=== PATIENT | female | born 1955 | race Caucasian/White ===

== ENCOUNTER 2016-02-22 01:57 | Emergency (ER) | payer MEDICAID ==
[2016-02-22] MEDS ORDERED: ONDANSETRON HCL/PF 2 MG/ML VIAL IV ONE (02:47)
[2016-02-22] MEDS ORDERED: NORMAL SALINE 1,000 ML IV ONE (02:47)
[2016-02-22] MEDS ORDERED: ONDANSETRON HCL/PF 2 MG/ML VIAL ONE (02:48)
--- NOTE | 2016-02-22 02:54 | ERNOTE ---
Medical Problem HPI - Narrative Date of Service: 02/22/16 - General Chief Complaint: Nausea/Vomiting Time Seen by Provider: 02/22/16 02:41 Source: patient Exam Limitations: no limitations - Immun/Allergies/Home Medications Immunizations: IMMUNIZATION HX Immunizations Up to Date Yes History of Influenza Vaccine Yes Hx Pneumococcal Vaccination Yes Allergies/Adverse Reactions: Allergies losartan [Losartan] Allergy (Severe, Verified 02/01/16 18:45) SEVERE EDEMA celecoxib [From Celebrex] Adverse Reaction (Intermediate, Verified 02/01/16 18: 45) "VIOLENT" GI DISTRESS NSAIDS (Non-Steroidal Anti-Inflamma Adverse Reaction (Intermediate, Verified 01/06 18:45) "violent" gi distress aspirin Adverse Reaction (Mild, Verified 02/01/16 18:45) Vomiting ibuprofen Adverse Reaction (Mild, Verified 02/01/16 18:45) Vomiting nabumetone [From Relafen] Adverse Reaction (Mild, Verified 02/01/16 18:45) diarrhea/vomiting citalopram hydrobromide [From Celexa] Adverse Reaction (Verified 02/01/16 18:45) "HISTORY OF FAMILY HEART PROBLEMS" Home Medications: HOME MEDICATIONS Albuterol Sulfate [Albuterol Sulfate 2.5 MG/0.5ML] 1 inh NEB Q4H PRN 11/06/15 [ Last Taken Unknown] Alendronate Sodium [Fosamax] 70 mg PO Q7D 11/06/15 [Last Taken 01/28/16] Benzonatate [Tessalon] 100 mg PO BID PRN 11/06/15 [Last Taken Unknown] DULoxetine HCL [Cymbalta] 90 mg PO DAILY 11/06/15 [Last Taken Unknown] Fluticasone/Salmeterol [Advair 500-50 Diskus] 1 puff INH Q12H 11/06/15 [Last Taken Unknown] Ibuprofen [Motrin] 600 mg PO BID PRN 11/06/15 [Last Taken Unknown] LORazepam [Ativan] 0.5 mg PO DAILY PRN 11/06/15 [Last Taken Unknown] Lisinopril [Zestril] 10 mg PO QPM 11/06/15 [Last Taken Unknown] Montelukast Sodium [Singulair] 10 mg PO DAILY 11/06/15 [Last Taken Unknown] Omeprazole [Prilosec] 40 mg PO DAILY 11/06/15 [Last Taken Unknown] Oxycodone HCl/Acetaminophen [Percocet 5-325 mg Tablet] 1 each PO Q4H PRN [Last Taken Unknown] Polyethylene Glycol 3350 [Miralax] 1 cap PO DAILY 11/06/15 [Last Taken Unknown] Pregabalin [Lyrica] 300 mg PO BID 11/06/15 [Last Taken Unknown] Tiotropium [place] [Spiriva] 1 inh PO DAILY 11/06/15 [Last Taken Unknown] Tizanidine HCl [Zanaflex] 4 mg PO QPM PRN 11/06/15 [Last Taken Unknown] Triamterene/Hydrochlorothiazid [Dyazide 37.5/25] 1 cap PO DAILY 11/06/15 [Last Taken Unknown] traMADol HCL [Ultram] 100 mg PO QID PRN 11/06/15 [Last Taken Unknown] traZODone HCL [Desyrel] 150 mg PO HS 11/06/15 [Last Taken Unknown] Albuterol Sulfate [Proair Respiclick] 90 mcg IH Q4H PRN 02/02/16 [Last Taken Unknown] Fluticasone Propionate [Flonase] 1 spray NS DAILY PRN 02/02/16 [Last Taken Unknown] Morphine Sulfate [Morphine Sulfate ER] 30 mg PO Q12H 02/02/16 [Last Taken Unknown] Morphine Sulfate [Ms Contin] 15 mg PO Q6H PRN 02/02/16 [Last Taken Unknown] Potassium Chloride [K-Dur] 40 meq PO QPM 02/02/16 [Last Taken Unknown] - History of Present History Narrative: 60-year-old female states she started having diarrhea Tuesday evening followed by nausea and vomiting which has been persistent since that time. She has mild epigastric pain from throwing up but denies other abdominal pain or distention. States she has cough but this is chronic and denies other constitutional signs or symptoms other than weakness from the dehydration Timing: constant Severity: moderate Modifying Factors - (Improves): Present: other - nothing Modifying Factors - (Worsens): Present: other - nothing Review of Systems - Review of Systems Constitutional: Present: See HPI EYE: Present: no symptoms reported ENT: Present: no symptoms reported Respiratory: Present: See HPI Cardiology: Present: no symptoms reported Gastrointestinal/Abdominal: Present: See HPI Genitourinary: Present: no symptoms reported Musculoskeletal: Present: no symptoms reported Skin: Present: no symptoms reported Neurological: Present: no symptoms reported Endocrine: Present: no symptoms reported Hematologic/Lymphatic: Present: no symptoms reported Psych: Present: no symptoms reported - Patient's Past Medical History Patient History - Medical: Anxiety, Arthritis, Chronic Pain, Depression, Fibromyalgia, GERD, Kidney stone, Migraines Patient History - Cardiac/Respiratory: COPD - no home O2, Hypertension Patient History - Cancer: No Hx of Cancer Patient History - Surgical Procedures: Back Surgery, Colonoscopy, D & C, Total Knee Replacement, Tubal Ligation, T & A, Other - Social History Living Situations: home Smoking Status: Never smoker Have you smoked in the past 12 months: No Do you dip or chew tobacco: No Patient requests Smoking Cessation Consult: No Initiate information on Smoking Cessation: No Alcohol Use: occasionally Drug Use: marijuana Physical Exam - Physical Exam General Appearance: Present: moderate distress - appears weak and pale and dry Eye Exam: Normal inspection: bilateral, PERRL: bilateral Ears, Nose, Throat: Present: normal ENT inspection, hearing grossly normal, normal pharynx Neck: Present: normal inspection, nontender Respiratory: Present: no respiratory distress, no accessory muscle use, chest nontender, lungs clear, decreased breath sounds Cardiovascular/Chest: Present: regular rate, rhythm, no murmur, normal peripheral pulses Gastrointestinal/Abdominal: Present: nondistended, soft, tenderness - mild epigastric Rectal Exam: Present: deferred Back Exam: Present: normal inspection Extremity Exam: Present: normal inspection, non-tender, no edema Neurological Exam: Present: alert, oriented, no motor/sensory deficits Skin Exam: Present: warm/dry, pallor Lymphatic Exam: Present: no adenopathy ED Progress - Results and Orders Patient's Lab Results:: I have reviewed the patient's lab results. Results and Orders: Also, slow with a right shift indicative of viral illness. Chemistries essentially within normal limits except for the decreased sodium 132 - Vital Signs Vital Signs: Vital Signs 02/22/16 02:02 Temperature 35.7 C L Pulse Rate 105 H Respiratory 16 Rate Blood Pressure 169/107 O2 Sat by Pulse 99 Oximetry - X-Ray X-Ray #1 X-Ray: abdomen - this distention of bowel but no evidence of air-fluid levels or obstruction - Progress/Reassessment Chief Complaint: Nausea/Vomiting Departure - Departure Clinical Impression: Viral gastroenteritis, Dehydration Disposition: Home self-care Condition: Fair Instructions: Rehydration, Adult, Viral Gastroenteritis, Adult, [id number] Additional Instructions: continue fluid replacement with clear liquids and gatorade. Follow up with Dr. Flores if not better by Tuesday Referrals: Iban Peres MD [Primary Care Provider] -
[2016-02-22 03:05] LABS: Hematocrit 39.9 % (37.0-47.0); Mean Cell Volume 85.1 fl (78-100); Mean Corpuscular Hemoglobin 27.7 pg (27-31); Mean Corpuscular Hgb Conc 32.6 g/dl (32-36); Mean Platelet Volume 9.1 fl (6.0-9.5); Neutrophil # 4.3 K/mm3 (1.3-6.0); Neutrophil % 67.8 % (42-75.0); Red Blood Count 4.69 M/mm3 (4.2-5.4); Red Cell Distribution Width 16.4 % (11.5-14.0); White Blood Count 6.4 K/mm3 (4.0-10.5)
[2016-02-22 03:18] LABS: Albumin * 4.2 gm/dl (3.4-5.0); Anion Gap 16.2 mmol/L (6.8-13.8); BUN/Creatinine Ratio 9.5 (9.0-21.6); Bilirubin, Total 0.6 mg/dL (0.0-1.1); Ca. Corrected For Albumin 8.6 mg/dL (8.4-10.2); Calcium * 9.1 mg/dL (7.9-10.9); Carbon Dioxide 25.5 mmol/L (24-32.6); Potassium 3.7 mmol/L (3.4-4.6); Total Protein 7.7 gm/dL (6.2-8.2)
[2016-02-22 03:19] LABS: Platelet Count 343 K/mm3 (150-450)
[2016-02-22] MEDS ORDERED: ONDANSETRON 4 MG TAB.RAPDIS PO ONE (04:02)
[2016-02-22] MEDS ORDERED: ONDANSETRON 4 MG TAB.RAPDIS ONE (04:05)
[2016-02-22 04:31] VITALS: BP 159/98
== END 2016-02-22 04:15 | disposition home or self-care (01) ==
LOC: ER 01:57
DX: E86.0 Dehydration (principal); A08.4 Viral intestinal infection, unspecified; Z96.659 Presence of unspecified artificial knee joint

== ENCOUNTER 2016-03-17 10:16 | Inpatient (IN) | payer MEDICAID ==
[2016-03-17] MEDS ORDERED: MORPHINE SULFATE 4 MG/ML SYRG IV ONE (10:28)
[2016-03-17] MEDS ORDERED: MORPHINE SULFATE 4 MG/ML SYRG ONE (10:39)
[2016-03-17 11:35] LABS: Hematocrit 32.9 % (37.0-47.0); Hemoglobin 10.8 gm/dL (12.5-16.0); Mean Cell Volume 86.6 fl (78-100); Mean Corpuscular Hemoglobin 28.4 pg (27-31); Mean Corpuscular Hgb Conc 32.8 g/dl (32-36); Neutrophil # 5.2 K/mm3 (1.3-6.0); Neutrophil % 75.8 % (42-75.0); Platelet Count 424 K/mm3 (150-450); Red Cell Distribution Width 15.4 % (11.5-14.0); White Blood Count 6.8 K/mm3 (4.0-10.5)
[2016-03-17 11:41] LABS: Prothrombin Time (Patient) 10.5 Seconds (9.4-11.4)
[2016-03-17 11:50] LABS: Albumin * 3.4 gm/dl (3.4-5.0); Anion Gap 12.2 mmol/L (6.8-13.8); BUN/Creatinine Ratio 9.9 (9.0-21.6); Bilirubin, Total 0.3 mg/dL (0.0-1.1); Ca. Corrected For Albumin 9.6 mg/dL (8.4-10.2); Calcium * 9.4 mg/dL (7.9-10.9); Carbon Dioxide 25.8 mmol/L (24-32.6); Total Protein 7.3 gm/dL (6.2-8.2)
[2016-03-17 11:51] LABS: INR 1.01 INR (0.90-1.10)
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
[2016-03-17 12:04] LABS: Urine Bilirubin Negative (NEGATIVE); Urine Ketone Negative (NEGATIVE); Urine Nitrite Negative (NEGATIVE); Urine Protein Negative (NEGATIVE); Urine Specific Gravity <=1.005 SP.GR. (1.005-1.010); Urine Urobilinogen Normal (NORMAL)
[2016-03-17 12:10] LABS: Urine Appearance Clear; Urine Bacteria None Seen; Urine Blood 10 /ul (NEGATIVE); Urine Color Yellow; Urine RBC 0-5 /hpf (0-5); Urine WBC None Seen /hpf (0-5)
--- NOTE | 2016-03-17 12:47 | CONS ---
- Reason for consultation (1) Hip fracture, right Date of Service: 03/17/16 HPI - General Date of Service: 03/17/16 Narrative: ^1 y/o female with hx of falling in bathroom at home and noted onset of pain to Rt hip and inability to weight bear on the Rt LE. Transported to [facility] via [facility]. Evaluation in the ED with noted femoral neck fracture Rt. Source: patient Exam Limitations: no limitations - History of Present Illness Initial Comments: As above. No new complaints. Denies preceeding dizzines or syncope prior to the fall. Timing/Duration: 1-3 hours Severity: moderate Modifying Factors - (Worsens): Reports: movement Modifying Factors - (Improves): Reports: immobilization, rest Associated Symptoms: denies symptoms Allergies/Adverse Reactions: Allergies losartan [Losartan] Allergy (Severe, Verified 03/17/16 10:30) SEVERE EDEMA celecoxib [From Celebrex] Adverse Reaction (Intermediate, Verified 03/17/16 10: 30) "VIOLENT" GI DISTRESS NSAIDS (Non-Steroidal Anti-Inflamma Adverse Reaction (Intermediate, Verified 10:30) "violent" gi distress aspirin Adverse Reaction (Mild, Verified 03/17/16 10:30) Vomiting ibuprofen Adverse Reaction (Mild, Verified 03/17/16 10:30) Vomiting nabumetone [From Relafen] Adverse Reaction (Mild, Verified 03/17/16 10:30) diarrhea/vomiting citalopram hydrobromide [From Celexa] Adverse Reaction (Verified 03/17/16 10:30) "HISTORY OF FAMILY HEART PROBLEMS" Home Medications: Home Medications Medication Instructions Recorded Last Taken Albuterol Sulfate [Albuterol 1 inh NEB Q4H PRN 11/06/15 Unknown Sulfate 2.5 MG/0.5ML] Alendronate Sodium [Fosamax] 70 mg PO Q7D 11/06/15 01/28/16 Benzonatate [Tessalon] 100 mg PO BID PRN 11/06/15 Unknown DULoxetine HCL [Cymbalta] 90 mg PO DAILY 11/06/15 Unknown Fluticasone/Salmeterol [Advair 1 puff INH Q12H 11/06/15 Unknown 500-50 Diskus] Ibuprofen [Motrin] 600 mg PO BID PRN 11/06/15 Unknown LORazepam [Ativan] 0.5 mg PO DAILY PRN 11/06/15 Unknown Lisinopril [Zestril] 10 mg PO QPM 11/06/15 Unknown Montelukast Sodium [Singulair] 10 mg PO DAILY 11/06/15 Unknown Omeprazole [Prilosec] 40 mg PO DAILY 11/06/15 Unknown Oxycodone HCl/Acetaminophen 1 each PO Q4H PRN 11/06/15 Unknown [Percocet 5-325 mg Tablet] Polyethylene Glycol 3350 [Miralax] 1 cap PO DAILY 11/06/15 Unknown Pregabalin [Lyrica] 300 mg PO BID 11/06/15 Unknown Tiotropium [place] [Spiriva] 1 inh PO DAILY 11/06/15 Unknown Tizanidine HCl [Zanaflex] 4 mg PO QPM PRN 11/06/15 Unknown Triamterene/Hydrochlorothiazid 1 cap PO DAILY 11/06/15 Unknown [Dyazide 37.5/25] traMADol HCL [Ultram] 100 mg PO QID PRN 11/06/15 Unknown traZODone HCL [Desyrel] 150 mg PO HS 11/06/15 Unknown Albuterol Sulfate [Proair 90 mcg IH Q4H PRN 02/02/16 Unknown Respiclick] Fluticasone Propionate [Flonase] 1 spray NS DAILY PRN 02/02/16 Unknown Morphine Sulfate [Morphine Sulfate 30 mg PO Q12H 02/02/16 Unknown ER] Morphine Sulfate [Ms Contin] 15 mg PO Q6H PRN 02/02/16 Unknown Potassium Chloride [K-Dur] 40 meq PO QPM 02/02/16 Unknown - Narrative Narrative: remote hx of tobacco use, otherwise negative. - Patient's Past Medical History Patient History - Medical: Anxiety, Arthritis, Chronic Pain, Depression, Fibromyalgia, GERD, Kidney stone, Migraines Patient History - Cardiac/Respiratory: COPD - no home O2, Hypertension Patient History - Cancer: No Hx of Cancer Patient History - Surgical Procedures: Back Surgery, Cholecystectomy, Total Knee Replacement, Other - Family History Family History:: no untoward family reactions to anesthesia - Social History Living Situations: home Smoking Status: Former smoker Have you smoked in the past 12 months: No Alcohol Use: occasionally Drug Use: marijuana Procedures BUNIONECT/SFT/OSTEOTOMY (09/12/13) BUNIONECTOMY NEC (09/12/13) CLOSURE SKIN & SUBCUTANEOUS NEC (02/17/14) DIPHTHERIA TOXOID ADMIN (05/31/09) DRESSING OF WOUND NEC (08/01/09) OTHER SKIN & SUBQ I D (04/27/10) REMOV INT FIX-METAT/TAR (05/23/14) TETANUS TOXOID ADMINIST (05/31/09) Physical Examination - Exam Narrative: Awake and alert. No bruisng to the Rt hip region. Pain to palpation over the Rt hip. Noted Rt TKA scar. Good distal pulses and sensation to the Rt LE. No other orthopedic findings. Additional exam per medicine. Vital Signs: Vital Signs - Last Taken Temp 36.7 C 03/17/16 10:21 Pulse 101 H 03/17/16 12:00 Resp 15 03/17/16 12:00 BP 154/83 03/17/16 12:00 Pulse Ox 96 03/17/16 12:00 - Results and Findings: Narrative: Noted Rt femoral neck fracture. Plan: Reviewed the films with Dr. Thomas. Plan for Rt Total Hip Arthroplasty for 03/18/2016. Have discussed this with the pt. Reviewed the risks and benefits. Pt agrees to proceed. - Assessments/Findings (1) Hip fracture, right Problem: Acute Qualifiers: Encounter type: initial encounter Fracture type: closed Qualified Code(s) : S72.001A - Fracture of unspecified part of neck of right femur, initial encounter for closed fracture
[2016-03-17] MEDS ORDERED: ceFAZolin SODIUM 1 GM VIAL IV PRN (12:49)
[2016-03-17] MEDS: MORPHINE SULFATE 2 MG/ML DISP.SYRIN IV PRN ×5 (14:04→23:18)
--- NOTE | 2016-03-17 16:05 | HP ---
Chief Complaint - Chief Complaint Date of Service: 03/17/16 Time of Service: 16:05 Chief Complaint: right hip pain History of Present Illness: Pita Charles, is a 60-year-old white female, with previous medical history of COPD, hypertension, anxiety and depression, fibromyalgia, who earlier this morning (03/17/2016) slipped in her bathroom and fell down. She immediately experienced severe right hip pain and could not stand up and bear weight. She was brought to the emergency room where she was found to have a right femoral neck fracture. She was then admitted for further orthopedic intervention. She denied any chest pain, shortness of breath, palpitations, blanketing of vision, soiling of undergarments before she fell down. Her most recent surgery was in September 2015 where she had left total knee arthroplasty in [facility] . She did not have any cardiac/pulmonary or anesthesia complications. She denies any fever or chills, denies any coughing, she denies any dysuria, frequency, chest pain, shortness of breath or palpitations.. - Patient's Past Medical History Patient History - Medical: Anemia, Anxiety, Arthritis, Chronic Pain, Depression , Fibromyalgia, GERD, Kidney stone, Migraines, Osteoarthritis, UTI'S Patient History - Cardiac/Respiratory: COPD - no home O2, Hypertension Patient History - Cancer: No Hx of Cancer Patient History - Surgical Procedures: Back Surgery, Cholecystectomy, Colonoscopy, D & C, Total Knee Replacement, Other - Family History Brother Family History - Medical: Family History - Cardiac/Respiratory: Coronary Heart Disease, CVA/Stroke Father Family History - Cardiac/Respiratory: Coronary Heart Disease, Hypertension Mother Family History - Medical: Arthritis Family History - Cardiac/Respiratory: Coronary Heart Disease, COPD, TIA Sister Family History - Medical: Arthritis Family History - Cardiac/Respiratory: Hypertension - Social History Living Situations: home Smoking Status: Former smoker Have you smoked in the past 12 months: No Do you dip or chew tobacco: No Patient requests Smoking Cessation Consult: No Initiate information on Smoking Cessation: No Alcohol Use: occasionally Drug Use: marijuana Review Of Systems (GEN) - Review of Systems Generalized/Overall Review: Absent: Chills, Fever EENTM: Present: No Symptoms Reported Respiratory: Absent: Cough, Shortness of Breath Cardiac: Absent: Chest Pain, Edema, Palpitations Abdominal: Absent: Nausea, Vomiting Genitourinary: Absent: Urgency, Frequency Musculoskeletal: Present: Joint Pain Allergies/Adverse Reactions: Allergies Allergy/AdvReac Type Severity Reaction Status Date / Time losartan [Losartan] Allergy Severe SEVERE Verified 03/17/16 12:42 EDEMA celecoxib [From Celebrex] AdvReac Intermediate "VIOLENT" Verified 03/17/16 12:42 GI DISTRESS NSAIDS (Non-Steroidal AdvReac Intermediate "violent" Verified 03/17/16 12:42 Anti-Inflamma gi distress aspirin AdvReac Mild Vomiting Verified 03/17/16 12:42 ibuprofen AdvReac Mild Vomiting Verified 03/17/16 12:42 nabumetone [From Relafen] AdvReac Mild diarrhea/vo Verified 03/17/16 12:42 miting citalopram hydrobromide AdvReac "HISTORY Verified 03/17/16 12:42 [From Celexa] OF FAMILY HEART PROBLEMS" Home Medications: HOME MEDICATIONS Albuterol Sulfate [Albuterol Sulfate 2.5 MG/0.5ML] 1 inh NEB Q4H PRN 11/06/15 [ Last Taken Unknown] Alendronate Sodium [Fosamax] 70 mg PO Q7D 11/06/15 [Last Taken 01/28/16] DULoxetine HCL [Cymbalta] 90 mg PO DAILY 11/06/15 [Last Taken Unknown] Fluticasone/Salmeterol [Advair 500-50 Diskus] 1 puff INH Q12H 11/06/15 [Last Taken Unknown] Ibuprofen [Motrin] 600 mg PO BID PRN 11/06/15 [Last Taken Unknown] Lisinopril [Zestril] 10 mg PO QPM 11/06/15 [Last Taken Unknown] Montelukast Sodium [Singulair] 10 mg PO DAILY 11/06/15 [Last Taken Unknown] Omeprazole [Prilosec] 40 mg PO DAILY 11/06/15 [Last Taken Unknown] Polyethylene Glycol 3350 [Miralax] 1 cap PO DAILY 11/06/15 [Last Taken Unknown] Pregabalin [Lyrica] 150 mg PO TID 11/06/15 [Last Taken Unknown] Tiotropium Ehrenberg [Spiriva] 1 inh PO DAILY 11/06/15 [Last Taken Unknown] Tizanidine HCl [Zanaflex] 4 mg PO QPM PRN 11/06/15 [Last Taken Unknown] Triamterene/Hydrochlorothiazid [Dyazide 37.5/25] 1 cap PO DAILY 11/06/15 [Last Taken Unknown] traMADol HCL [Ultram] 100 mg PO QID PRN 11/06/15 [Last Taken Unknown] traZODone HCL [Desyrel] 150 mg PO HS 11/06/15 [Last Taken Unknown] Albuterol Sulfate [Proair Respiclick] 90 mcg IH Q4H PRN 02/02/16 [Last Taken Unknown] Fluticasone Propionate [Flonase] 1 spray NS DAILY PRN 02/02/16 [Last Taken Unknown] Morphine Sulfate [Ms Contin] 15 mg PO Q6H PRN 02/02/16 [Last Taken Unknown] Potassium Chloride [K-Dur] 40 meq PO DAILY 02/02/16 [Last Taken Unknown] Ranitidine HCl [Zantac] 300 mg PO HS 03/17/16 [Last Taken Unknown] Exam - Exam Vital Signs: Vital Signs - Last Taken Temp 37.1 C 03/17/16 13:40 Pulse 102 H 03/17/16 13:40 Resp 20 03/17/16 13:40 BP 149/84 03/17/16 13:40 Pulse Ox 95 03/17/16 13:40 Constitutional: Present: Alert, Oriented x3, Cooperative ENT Exam: Present: hearing grossly normal Eye Exam: bilateral eye: normal inspection, PERRL, EOMI Neck: Present: supple Back Exam: Present: no CVA tenderness Breasts: Present: Exam deferred Respiratory: Present: decreased breath sounds, No wheezing Cardiovascular/Chest: Present: regular rate, rhythm, no JVD, no murmur Abdomen: Present: Normal bowel sounds, soft, nontender, nondistended /Rectal: Present: Other - RLE- externally rotated, shorter than LLE Diagnostic Studies: Laboratory Results WBC 6.8 K/mm3 (4.0-10.5) 03/17/16 11:30 RBC 3.80 M/mm3 (4.2-5.4) L 03/17/16 11:30 Hgb 10.8 gm/dL (12.5-16.0) L 03/17/16 11:30 Hct 32.9 % (37.0-47.0) L 03/17/16 11:30 MCV 86.6 fl (78-100) 03/17/16 11:30 MCH 28.4 pg (27-31) 03/17/16 11:30 MCHC 32.8 g/dl (32-36) 03/17/16 11:30 RDW 15.4 % (11.5-14.0) H 03/17/16 11:30 Plt Count 424 K/mm3 (150-450) 03/17/16 11:30 MPV 8.0 fl (6.0-9.5) 03/17/16 11:30 Immature Gran % (Auto) 0.70 % (0.001-0.429) H 03/17/16 11:30 Immature Gran # (Auto) 0.05 K/mm3 (0.000-0.0310) H 03/17/16 11:30 Neutrophils % 75.8 % (42-75.0) H 03/17/16 11:30 Lymphocytes % 11.1 % (20-51) L 03/17/16 11:30 Monocytes % 12.0 % (0.0-9) H 03/17/16 11:30 Eosinophils % 0.1 % (0.0-3.0) 03/17/16 11:30 Basophils % 0.3 % (0.0-1.0) 03/17/16 11: Nucleated RBC % 0.0 k/mm3 (0-1) 03/17/16 11:30 Neutrophils # 5.2 K/mm3 (1.3-6.0) 03/17/16 11:30 Lymphocytes # 0.8 k/mm3 (1.5-3.5) L 03/17/16 11:30 Monocytes # 0.8 k/mm3 (0.0-1.0) 03/17/16 11:30 Eosinophils # 0.0 k/mm3 (0.0-0.7) 03/17/16 11: Absolute Basophils 0.0 k/mm3 (0.0-0.1) 03/17/16 11:30 PT 10.5 Seconds (9.4-11.4) 03/17/16 11:30 INR (Anticoag Therapy) 1.01 INR (0.90-1.10) 03/17/16 11:30 Sodium 135 mmol/L (132-142) 03/17/16 11:30 Plasma Sodium 135 mmol/L (130-142) 03/17/16 11:30 Potassium 4.0 mmol/L (3.4-4.6) 03/17/16 11:30 Chloride 101 mmol/L (97-106) 03/17/16 11:30 Carbon Dioxide 25.8 mmol/L (24-32.6) 03/17/16 11:30 Anion Gap 12.2 mmol/L (6.8-13.8) 03/17/16 11:30 BUN 8 mg/dL (3-23) 03/17/16 11:30 Creatinine 0.81 mg/dL (0.4-1.4) 03/17/16 11:30 Est GFR (Non-Af Amer) 77 mL/min (60-130) D 03/17/16 11:30 BUN/Creatinine Ratio 9.9 (9.0-21.6) 03/17/16 11:30 Random Glucose 124 mg/dL (70-110) H 03/17/16 11:30 Calcium 9.4 mg/dL (7.9-10.9) 03/17/16 11:30 Calcium Adj for Albumin 9.6 mg/dL (8.4-10.2) 03/17/16 11:30 Total Bilirubin 0.3 mg/dL (0.0-1.1) 03/17/16 11:30 AST 16 U/L (0-48) 03/17/16 11:30 ALT 29 U/L (19-67) 03/17/16 11:30 Alkaline Phosphatase 90 U/L (50-170) 03/17/16 11:30 Total Protein 7.3 gm/dL (6.2-8.2) 03/17/16 11:30 Albumin 3.4 gm/dl (3.4-5.0) 03/17/16 11:30 Urine Color Yellow 03/17/16 11:55 Urine Appearance Clear 03/17/16 11:55 Urine pH 7.0 pH (5.0-7.0) 03/17/16 11:55 Ur Specific [place] <=1.005 SP.GR. (1.005-1.010) 03/17/16 11:55 Urine Protein Negative mg/dL (NEGATIVE) 03/17/16 11:55 Urine Glucose (UA) Negative mg/dL (NEGATIVE) 03/17/16 11:55 Urine Ketones Negative mg/dL (NEGATIVE) 03/17/16 11:55 Urine Blood 10 /ul (NEGATIVE) H 03/17/16 11:55 Urine Nitrate Negative (NEGATIVE) 03/17/16 11:55 Urine Bilirubin Negative mg/dl (NEGATIVE) 03/17/16 11:55 Urine Urobilinogen Normal EU/dl (NORMAL) 03/17/16 11:55 Ur Leukocyte Esterase Negative /ul (NEGATIVE) 03/17/16 11:55 Urine RBC 0-5 /hpf (0-5) 03/17/16 11:55 Urine WBC None seen /hpf (0-5) 03/17/16 11:55 Ur Epithelial Cells None seen /hpf (0-5) 03/17/16 11:55 Urine Bacteria None seen (NONE) 03/17/16 11:55 Urine Culture Comments Culture to follow 03/17/16 11:55 Assessment/Plan - Assessment/Plan (1) Hip fracture, right Assessment: transcervical right femoralneck fracture for LUCY tomorrow. Her CXR showed no acute cardiopulmonary findings. EKG showed Sinus tachycardia, possible LAE, possible RV conduction delay. CBC, BMP were essentially WNL except for Hb of 10.8. She may proceed with her anticipated surgery. Problem: Acute Qualifiers: Encounter type: initial encounter Fracture type: closed Qualified Code(s) : S72.001A - Fracture of unspecified part of neck of right femur, initial encounter for closed fracture (2) COPD (chronic obstructive pulmonary disease) Problem: Acute (3) Anemia Assessment: likely due to acute blood loss from neck fracture. . Last Hb was 13. will monitor . Problem: Acute Qualifiers: Anemia type: other cause Other causes of anemia: other cause, not classified Qualified Code(s): D64.89 - Other specified anemias (4) Hypertension Problem: Chronic Qualifiers: Hypertension type: essential hypertension Qualified Code(s): I10 - Essential (primary) hypertension (5) Fibromyalgia Assessment: with chronic pain syndrome being followed up by [facility] pain clinic. Problem: Chronic
[2016-03-17] MEDS ORDERED: ALBUTEROL SULFATE 2.5 MG/0.5 ML VIAL.NEB IH PRN (16:22)
[2016-03-17] MEDS ORDERED: FLUTICASONE PROPIONATE 120 SPRAY INHALER NS PRN (16:22)
[2016-03-17] MEDS: LISINOPRIL 10 MG TABLET PO SCH (17:39)
[2016-03-17] MEDS: FLUTICASONE/SALMETEROL 14 PUFF DISK.W.DEV IH SCH (20:15)
[2016-03-17] MEDS: traZODone HCL 150 MG TABLET PO SCH (20:16)
[2016-03-17] MEDS: MONTELUKAST SODIUM 10 MG TABLET PO SCH (20:17)
[2016-03-17] MEDS: FAMOTIDINE 20 MG TABLET PO SCH (20:17)
[2016-03-17] MEDS: PREGABALIN 75 MG CAPSULE PO SCH (20:19)
[2016-03-18] MEDS: MORPHINE SULFATE 2 MG/ML DISP.SYRIN IV PRN ×9 (02:01→18:20)
[2016-03-18] MEDS ORDERED: RINGERS SOLUTION,LACTATED 1,000 ML IV ONE ×4 (06:19→10:05)
[2016-03-18] MEDS ORDERED: ceFAZolin SODIUM 1 GM VIAL IV ONE (08:20)
[2016-03-18] MEDS ORDERED: ROPIVACAINE HCL/PF 100 MG, EPINEPHrine 0.2 MG in NORMAL SALINE 100 ML IJ PRN (09:15)
[2016-03-18] MEDS ORDERED: PROMETHAZINE HCL 5 MG in DEXTROSE 5 % IN WATER 50 ML IV PRN ×2 (10:03)
[2016-03-18] MEDS ORDERED: ONDANSETRON HCL/PF 2 MG/ML VIAL IV PRN (10:03)
[2016-03-18] MEDS ORDERED: oxyCODONE HCL/ACETAMINOPHEN 1 TAB TABLET PO PRN ×2 (10:03)
[2016-03-18] MEDS ORDERED: MAGNESIUM HYDROXIDE 30 ML UDC PO PRN (10:03)
[2016-03-18] MEDS ORDERED: MAG HYDROX/ALUMINUM HYD/SIMETH 30 ML UDC PO PRN (10:03)
--- NOTE | 2016-03-18 10:03 | OR ---
Operative Report - Dictated Report Narrative: Date: 03/18/2016 Preoperative diagnosis: Right displaced subcapital femoral neck fracture Postoperative diagnosis: Right displaced subcapital femoral neck fracture Procedure: Right uncemented total hip arthroplasty Surgeon: Roe Thomas M.D. Flat Bed Knitter: Deb Israel PA-C Anesthesia: Spinal and local periarticular joint injection. Complications: None Specimens: Bone for disposal. Estimated blood loss: 200 milliliters. Retained implants: Depuy Waldo size 6 femoral stem standard offset. Size 46 millimeter ouside diameter 3-hole [place] Gription acetabular cup. 46 millimeter outside by 28 millimeter inside diameter highly cross-linked acetabular liner. 28 millimeter diameter + 8 millimeter cobalt chromium femoral head. Cancellous 6.5mm screw 30 millimeter length Indications: Pita Is a 60-year-old female community ambulator. She sustained a right femoral neck fracture after a ground-level fall. She was initially seen in the [facility] emergency department where plain films revealed a right displaced subcapital femoral neck fracture. She was admitted to the internal medicine service and orthopedics was consultative. I counseled her that this type of fracture often goes on to avascular necrosis if we attempted to fix it and therefore the recommendation would be for a total hip arthroplasty. Patient wished to proceed with surgical treatment. The risks , benefits, and alternatives were discussed in clinic. The risks of , blood clots, bleeding, infection, nerve/tendon blood vessel/ injury, malposition of components, dislocation and/or instability of joint, intraoperative fracture, postoperative limited range of motion, persistent pain , failure of components, leg length discrepancy, and need for additional procedures. Patient wished to proceed. Consent was obtained after answering all questions. Procedure: After marking the correct extremity on the floor, the patient was taken to the operating room. A timeout was performed. IV antibiotics consisting of 1 g of Ancef were administered prior to the procedure. A spinal anesthetic was induced by anesthesia. A Mcconnell catheter was inserted. The patient was then transitioned to a lateral position on a well-padded pegboard. And an axillary roll was placed. The head was in neutral position. The non- operative down leg was well-padded with SCD and DEB hose in place. The arms were supported and padded to protect from any undue pressure on the bony prominences and nerves. Well-padded anterior and posterior pelvic and chest posts were secured in order to maintain a stable position of the pelvis. This was placed so that the pelvis was perpendicular to the floor. The body was in line with the pelvis. Once it was felt that we had protected all the bony prominences and the patient was well secured with a safety belt as well, the leg was pre-scrubbed with alcohol, prepped and draped in a standard sterile fashion. A standard anterior lateral hip incision was marked out over the greater trochanter. Ioban drapes were then placed. The skin incision was then made. Sharp dissection with a scalpel utilizing cautery for hemostasis was carried out down to the gluteus and iliotibial band fascia. This was split in line with the skin incision. The greater trochanter bursa was excised. The anterior and posterior margins of the abductor tendon were identified. The anterior 1/3 of the tendon was tagged and reflected off the greater trochanter leaving a sleeve of tendon for repair at the completion of the case. This exposed the underlying hip joint capsule. A limb length stitch was placed in the skin and referenced off a mak on the greater trochanter for evaluation of intraoperative limb lengths. An inverted T-type capsulotomy was made extending this up to the brim of the acetabulum. Using Homans to assist with elevation of the soft tissues off the anterior, superior, and inferior aspects of the femoral neck, the hip was then placed in a figure 4 position and the femoral head was dislocated. With the leg in an externally rotated and adducted position, the cutting flag was utilized in order to mak for a standard femoral neck cut approximately a fingerbreadth above the level of the lesser trochanter. This was done while protecting the surrounding soft tissues with Homans. The femoral head was then removed and sized for guidance on preparation of the acetabulum. It was noted that there was loss of articular cartilage on both the femoral head and weightbearing portions of the acetabulum. We then returned the leg to the table and turned our attention to the acetabulum. While protecting the surrounding soft tissues, the labrum and remaining tissue in the fovea were excised using a scalpel and cautery. A series of reamers up to size 45 millimeter were utilized to prepare the acetabulum. The final reamer had good purchase and exposed the bleeding subchondral bone. The acetabulum was then thoroughly irrigated ensuring that all bony and cartilaginous materials were removed and the final acetabular shell was impacted into place. This was placed in approximately 45 degrees of abduction and 20 degrees of anteversion utilizing the outrigger and body axis for alignment. This had a good press fit. A 30 x 6.5mm cancellous screw was placed in the posterior superior quadrant of the acetabulum. The shell was then thoroughly irrigated and the final polyethylene was impacted into place ensuring that it seated completely. This was then protected with a sponge while we returned our attention to the femur. With the leg in a figure 4 position utilizing Homans for soft tissue protection , a box cutting osteotome, followed by Charnley awl, followed by serial reamers and broaches were utilized in order to prepare the femur. It was found that a size 6 broach gave good axial and rotational stability. The calcar reamer was utilized in order to clean up the cut edges. The proximal femur was visualized to ensure that there were no signs of fracture. A series of heads and necks were trialed. It was found that a standard offset neck and a + 8 mm femoral head gave good overall stability. There is minimal longitudinal instability. With the leg in the position of sleep the femoral head was well covered. Hip range of motion was able to reach full extension and external rotation to greater than 75 degrees prior to impingement along the posterior acetabulum. The hip was able to be flexed to greater than 90 degrees with internal rotation greater than 60 degrees prior to anterior impingement. The limb lengths were near equal based on comparison to the contralateral side in the prior placed limb length stitch. At this point was felt this was the appropriately sized femoral components as well as neck and femoral head. The trial implants were removed. The femur was thoroughly irrigated. The final implants were impacted in the place and the hip was reduced. After ensuring that there was no damage to the proximal femur , the standard periarticular joint injection of ropivacaine, Toradol, and epinephrine were injected into the joint capsule and surrounding soft tissues. The capsule was repaired with interrupted #1 Ethibond. The abductor tendon was repaired to the greater trochanter utilizing #5 Ethibond. This was oversewn with #1 Vicryl. The fascia was closed with interrupted #1 Vicryl. The wounds were thoroughly irrigated as we closed in layers. The deep fat layers were closed with 0 Vicryl. The subcutaneous tissue was closed with interrupted 3-0 Vicryl and the skin with a running subcuticular 4-0 monocryl and ratna. All sponge, needle, blade, and instrument counts were correct prior to closing the wounds. Sterile dressings consisting of Xeroform, 4 x 4's, ABD, and tape were applied. The patient was awoken and transferred to her hospital bed and then to the postanesthesia care unit in stable condition. Postoperative condition: The plan is to admit to the medical/surgical inpatient floor postoperatively. There will be a projected 2 to 4 day hospital stay. Postoperatively 24 hours of IV antibiotics, pain control, physical therapy, occupational therapy, and medical comanagement will be utilized. Patient will be weightbearing as tolerated with anterior hip precautions. Postoperative films will be obtained in the recovery room.
[2016-03-18] MEDS ORDERED: NORMAL SALINE 1,000 ML IV PRN (10:05)
[2016-03-18] MEDS ORDERED: NALOXONE HCL 1 MG/1 ML SYRG IV PRN ×2 (10:29)
[2016-03-18] MEDS ORDERED: diphenhydrAMINE HCL 50 MG/ML VIAL IV PRN (10:29)
[2016-03-18] MEDS: PANTOPRAZOLE SODIUM 40 MG TABLET.EC PO SCH (11:20)
[2016-03-18] MEDS: PREGABALIN 75 MG CAPSULE PO SCH ×3 (11:20→20:17)
[2016-03-18] MEDS: TIOTROPIUM BROMIDE 5 CAP INHALER IH SCH (11:21)
[2016-03-18] MEDS: DULoxetine HCL 30 MG CAPSULE.SA PO SCH (11:21)
[2016-03-18] MEDS: FLUTICASONE/SALMETEROL 14 PUFF DISK.W.DEV IH SCH ×2 (11:21→20:13)
[2016-03-18] MEDS: ceFAZolin SODIUM 1 GM in DEXTROSE 5 % IN WATER 100 ML IV SCH ×6 (11:58→23:32)
[2016-03-18] MEDS: LISINOPRIL 10 MG TABLET PO SCH (16:24)
[2016-03-18] MEDS ORDERED: NON-FORMULARY 1 DOSE DOSE (Albuterol Sulfate [Proair Respiclick] 90 MCG) IH PRN (16:36)
--- NOTE | 2016-03-18 16:36 | PN ---
Subjective - Date and Time Seen Date: 03/18/16 Time: 16:31 Subjective Narrative: Patient back in her room after RTHA, She is complaining of pain. Objective - Review of Systems Generalized/Overall Review: Denies: Chills, Fever EENTM: Reports: No Symptoms Reported Respiratory: Denies: Cough, Shortness of Breath Cardiac: Denies: Chest Pain, Palpitations Abdominal: Denies: Nausea, Vomiting Genitourinary Symptoms: Denies: Urgency, Frequency Musculoskeletal Complaints: Reports: Joint Pain - Vitals Vitals: Last Vital Signs Temp 35.9 C L 03/18/16 15:04 Pulse 128 H 03/18/16 16:00 Resp 20 03/18/16 16:00 BP 110/67 03/18/16 16:00 Pulse Ox 97 03/18/16 16:00 - Exam Constitutional: Present: Alert, Oriented x3, Cooperative ENT Exam: Present: hearing grossly normal Neck: Present: supple Breasts: Present: Exam deferred Respiratory: Present: decreased breath sounds, No rales, No wheezing Cardiovascular/Chest: Present: regular rate, rhythm, no JVD, no murmur, tachycardia Abdomen: Present: Normal bowel sounds, soft, nontender, nondistended Extremity: Present: no pedal edema, no calf tenderness Cauti Physician Documentation - Urinary Catheter Management Urethral (Mcconnell) Date of Insertion: 03/17/16 Time of Insertion: 12:02 Assessment/Plan - Problems/Diagnosis (1) Hip fracture, right Problem: Acute Qualifiers: Encounter type: initial encounter Fracture type: closed Qualified Code(s) : S72.001A - Fracture of unspecified part of neck of right femur, initial encounter for closed fracture Narrative: subcapital femoral neck fracture s/p ORIF. Will have PT/OT. (2) COPD (chronic obstructive pulmonary disease) Problem: Chronic Qualifiers: COPD type: chronic bronchitis Chronic bronchitis type: unspecified Qualified Code(s): J42 - Unspecified chronic bronchitis (3) Anemia Problem: Acute Qualifiers: Anemia type: other cause Other causes of anemia: other cause, not classified Qualified Code(s): D64.89 - Other specified anemias Narrative: will monitor (4) Hypertension Problem: Chronic Qualifiers: Hypertension type: essential hypertension Qualified Code(s): I10 - Essential (primary) hypertension (5) Fibromyalgia Problem: Chronic (6) Tachycardia Problem: Acute Narrative: likely due to pain/? mild dehydration, continue with pain management and IVF.
[2016-03-18] MEDS ORDERED: oxyCODONE HCL 5 MG TABLET PO SCH (18:30)
[2016-03-18] MEDS: oxyCODONE HCL 5 MG TABLET PO PRN (19:08)
[2016-03-18] MEDS ORDERED: oxyCODONE HCL 5 MG TABLET PO PRN (19:44)
[2016-03-18] MEDS: traZODone HCL 150 MG TABLET PO SCH (20:13)
[2016-03-18] MEDS: FAMOTIDINE 20 MG TABLET PO SCH (20:14)
[2016-03-18] MEDS: SENNOSIDES/DOCUSATE SODIUM 1 TAB TABLET PO SCH (20:14)
[2016-03-18] MEDS: MONTELUKAST SODIUM 10 MG TABLET PO SCH (20:14)
[2016-03-18] MEDS: HYDROmorphone HCL 1 MG/ML DISP.SYRIN IV PRN (23:40)
[2016-03-19] MEDS: HYDROmorphone HCL 1 MG/ML DISP.SYRIN IV PRN ×5 (03:08→13:50)
[2016-03-19] MEDS ORDERED: ROPIVACAINE HCL/PF 100 MG, EPINEPHrine 0.2 MG in NORMAL SALINE 100 ML IJ PRN (06:00)
[2016-03-19 06:16] LABS: Hematocrit 26.7 % (37.0-47.0); Hemoglobin 8.7 gm/dL (12.5-16.0); Mean Cell Volume 86.7 fl (78-100); Mean Corpuscular Hemoglobin 28.2 pg (27-31); Mean Corpuscular Hgb Conc 32.6 g/dl (32-36); Mean Platelet Volume 8.2 fl (6.0-9.5); Platelet Count 372 K/mm3 (150-450); Red Blood Count 3.08 M/mm3 (4.2-5.4); Red Cell Distribution Width 15.9 % (11.5-14.0); White Blood Count 8.2 K/mm3 (4.0-10.5)
[2016-03-19 06:40] LABS: Anion Gap 10.7 mmol/L (6.8-13.8); BUN/Creatinine Ratio 6.2 (9.0-21.6); Carbon Dioxide 24.4 mmol/L (24-32.6); Estimated Creat Clear 73.7; Potassium 3.1 mmol/L (3.4-4.6)
[2016-03-19 06:41] LABS: Calcium * 7.7 mg/dL (7.9-10.9)
[2016-03-19] MEDS: PANTOPRAZOLE SODIUM 40 MG TABLET.EC PO SCH (06:57)
[2016-03-19] MEDS: PREGABALIN 75 MG CAPSULE PO SCH ×3 (06:57→20:09)
[2016-03-19] MEDS: oxyCODONE HCL 5 MG TABLET PO PRN ×3 (07:42→16:46)
--- NOTE | 2016-03-19 07:52 | PN ---
Subjective - Date and Time Seen Date: 03/19/16 Time: 07:46 Subjective Narrative: POD # 1. Afebrile. Chief compliant of pain. Objective - Review of Systems Generalized/Overall Review: Denies: Chills, Fever EENTM: Reports: No Symptoms Reported Respiratory: Denies: Cough, Shortness of Breath Cardiac: Denies: Chest Pain, Palpitations Abdominal: Denies: Nausea, Vomiting Genitourinary Symptoms: Denies: Urgency, Frequency Musculoskeletal Complaints: Reports: Joint Pain - Vitals Vitals: Last Vital Signs Temp 37.3 C 03/19/16 06:47 Pulse 116 H 03/19/16 06:47 Resp 20 03/19/16 06:47 BP 129/67 03/19/16 06:47 Pulse Ox 95 03/19/16 06:47 - Abnormal Lab Findings Abnormal Lab Findings: Abnormal Lab Results 03/19/16 03/19/16 Range/Units 06:01 06:01 RBC 3.08 L (4.2-5.4) M/mm3 Hgb 8.7 L (12.5-16.0) gm/dL Hct 26.7 L (37.0-47.0) % RDW 15.9 H (11.5-14.0) % Potassium 3.1 L D (3.4-4.6) mmol/L BUN/Creatinine Ratio 6.2 L (9.0-21.6) Random Glucose 124 H (70-110) mg/dL Calcium 7.7 L (7.9-10.9) mg/dL - Exam Constitutional: Present: Alert, Oriented x3, Cooperative ENT Exam: Present: hearing grossly normal Neck: Present: supple Breasts: Present: Exam deferred Respiratory: Present: decreased breath sounds, No rales, No wheezing Cardiovascular/Chest: Present: regular rate, rhythm, no JVD, tachycardia Abdomen: Present: Normal bowel sounds, soft, nontender, nondistended Extremity: Present: no pedal edema, no calf tenderness Cauti Physician Documentation - Urinary Catheter Management Urethral (Mcconnell) Date of Insertion: 03/17/16 Time of Insertion: 12:02 Assessment/Plan - Problems/Diagnosis (1) Hip fracture, right Problem: Acute Qualifiers: Encounter type: initial encounter Fracture type: closed Qualified Code(s) : S72.001A - Fracture of unspecified part of neck of right femur, initial encounter for closed fracture Narrative: s/p THR. POD # 1. for PT/OT. (2) Anemia associated with acute blood loss Problem: Acute Narrative: Hb 8.7. consider BT if she becomes symptomatic or tachycardia continues if HB goes down more. (3) Tachycardia Problem: Acute Narrative: multifactorial- pain, anemia. (4) Fibromyalgia Problem: Chronic Narrative: with chronic pain syndrome -being treated by [facility]. (5) COPD (chronic obstructive pulmonary disease) Problem: Chronic Qualifiers: COPD type: chronic bronchitis Chronic bronchitis type: unspecified Qualified Code(s): J42 - Unspecified chronic bronchitis (6) Hypertension Problem: Chronic Qualifiers: Hypertension type: essential hypertension Qualified Code(s): I10 - Essential (primary) hypertension
[2016-03-19] MEDS: ENOXAPARIN SODIUM 40 MG/0.4 ML SYRG SC SCH (09:05)
[2016-03-19] MEDS: POTASSIUM CHLORIDE 20 MEQ TABLET.SA PO SCH ×2 (09:07→17:00)
[2016-03-19] MEDS: DULoxetine HCL 30 MG CAPSULE.SA PO SCH (09:08)
[2016-03-19] MEDS: FERROUS SULFATE 325 MG TABLET PO SCH (09:08)
[2016-03-19] MEDS: FLUTICASONE/SALMETEROL 14 PUFF DISK.W.DEV IH SCH ×2 (09:10→20:06)
[2016-03-19] MEDS: TIOTROPIUM BROMIDE 5 CAP INHALER IH SCH (09:11)
--- NOTE | 2016-03-19 14:26 | PN ---
Subjective - Date and Time Seen Date: 03/19/16 Time: 14:23 Subjective Narrative: Patient denies complications related to Duramorph spinal. Patient's pain appears to be controlled enough to perform regular post op activities despite patient's stated perception of pain. Objective - Review of Systems Generalized/Overall Review: Reports: No Symptoms Reported - Vitals Vitals: Last Vital Signs Temp 36.6 C 03/19/16 11:16 Pulse 115 H 03/19/16 11:16 Resp 18 03/19/16 11:16 BP 108/63 03/19/16 11:16 Pulse Ox 94 03/19/16 11:16 - Abnormal Lab Findings Abnormal Lab Findings: Abnormal Lab Results 03/19/16 03/19/16 Range/Units 06:01 06:01 RBC 3.08 L (4.2-5.4) M/mm3 Hgb 8.7 L (12.5-16.0) gm/dL Hct 26.7 L (37.0-47.0) % RDW 15.9 H (11.5-14.0) % Potassium 3.1 L D (3.4-4.6) mmol/L BUN/Creatinine Ratio 6.2 L (9.0-21.6) Random Glucose 124 H (70-110) mg/dL Calcium 7.7 L (7.9-10.9) mg/dL Cauti Physician Documentation - Urinary Catheter Management Urethral (Mcconnell) Date of Insertion: 03/17/16 Time of Insertion: 12:02 Date of Removal: 03/19/16 Time of Removal: 09:22 Assessment/Plan Plan Narrative: Continue current pain medication regimen.
[2016-03-19] MEDS: LISINOPRIL 10 MG TABLET PO SCH (17:01)
[2016-03-19] MEDS: ACETAMINOPHEN 500 MG TABLET PO PRN (18:36)
[2016-03-19] MEDS: SENNOSIDES/DOCUSATE SODIUM 1 TAB TABLET PO SCH (20:06)
[2016-03-19] MEDS: traZODone HCL 150 MG TABLET PO SCH (20:07)
[2016-03-19] MEDS: MONTELUKAST SODIUM 10 MG TABLET PO SCH (20:07)
[2016-03-19] MEDS: FAMOTIDINE 20 MG TABLET PO SCH (20:07)
[2016-03-20 05:42] LABS: Hemoglobin 8.5 gm/dL (12.5-16.0); Mean Cell Volume 87.5 fl (78-100); Mean Corpuscular Hemoglobin 28.6 pg (27-31); Mean Corpuscular Hgb Conc 32.7 g/dl (32-36); Mean Platelet Volume 8.4 fl (6.0-9.5); Platelet Count 423 K/mm3 (150-450); Red Blood Count 2.97 M/mm3 (4.2-5.4); Red Cell Distribution Width 16.2 % (11.5-14.0); White Blood Count 9.7 K/mm3 (4.0-10.5)
[2016-03-20 05:56] LABS: Anion Gap 8.9 mmol/L (6.8-13.8); BUN/Creatinine Ratio 13.3 (9.0-21.6); Calcium * 8.3 mg/dL (7.9-10.9); Carbon Dioxide 26.1 mmol/L (24-32.6); Estimated Creat Clear 79.8
[2016-03-20] MEDS: oxyCODONE HCL 5 MG TABLET PO PRN ×5 (05:57→23:53)
[2016-03-20] MEDS: PANTOPRAZOLE SODIUM 40 MG TABLET.EC PO SCH (07:25)
[2016-03-20] MEDS: PREGABALIN 75 MG CAPSULE PO SCH ×3 (07:27→20:54)
[2016-03-20] MEDS: MULTIVITAMINS 1 CAP CAPSULE PO SCH (08:57)
[2016-03-20] MEDS: DULoxetine HCL 30 MG CAPSULE.SA PO SCH (08:58)
[2016-03-20] MEDS: FLUTICASONE/SALMETEROL 14 PUFF DISK.W.DEV IH SCH ×2 (08:59→20:50)
[2016-03-20] MEDS: TIOTROPIUM BROMIDE 5 CAP INHALER IH SCH (08:59)
[2016-03-20] MEDS: ENOXAPARIN SODIUM 40 MG/0.4 ML SYRG SC SCH (09:00)
[2016-03-20] MEDS: FERROUS SULFATE 325 MG TABLET PO SCH (09:00)
[2016-03-20] MEDS: ACETAMINOPHEN 500 MG TABLET PO PRN (09:04)
[2016-03-20] MEDS: LISINOPRIL 10 MG TABLET PO SCH (16:33)
[2016-03-20] MEDS: traZODone HCL 150 MG TABLET PO SCH (20:50)
[2016-03-20] MEDS: FAMOTIDINE 20 MG TABLET PO SCH (20:51)
[2016-03-20] MEDS: MONTELUKAST SODIUM 10 MG TABLET PO SCH (20:51)
[2016-03-20] MEDS: SENNOSIDES/DOCUSATE SODIUM 1 TAB TABLET PO SCH (20:52)
[2016-03-21] MEDS: ACETAMINOPHEN 500 MG TABLET PO PRN (05:03)
[2016-03-21 05:40] LABS: Mean Cell Volume 86.1 fl (78-100); Mean Corpuscular Hemoglobin 28.5 pg (27-31); Mean Corpuscular Hgb Conc 33.1 g/dl (32-36); Mean Platelet Volume 8.5 fl (6.0-9.5); Platelet Count 453 K/mm3 (150-450); Red Blood Count 2.74 M/mm3 (4.2-5.4); Red Cell Distribution Width 16.1 % (11.5-14.0); White Blood Count 10.8 K/mm3 (4.0-10.5)
[2016-03-21 05:58] LABS: Hemoglobin 7.8 gm/dL (12.5-16.0)
[2016-03-21 05:59] LABS: Hematocrit 23.6 % (37.0-47.0)
[2016-03-21] MEDS: PANTOPRAZOLE SODIUM 40 MG TABLET.EC PO SCH (07:23)
[2016-03-21] MEDS: oxyCODONE HCL 5 MG TABLET PO PRN ×4 (07:31→19:32)
[2016-03-21] MEDS: PREGABALIN 75 MG CAPSULE PO SCH ×3 (08:10→21:37)
[2016-03-21] MEDS: ENOXAPARIN SODIUM 40 MG/0.4 ML SYRG SC SCH (09:32)
[2016-03-21] MEDS: MULTIVITAMINS 1 CAP CAPSULE PO SCH (09:32)
[2016-03-21] MEDS: TIOTROPIUM BROMIDE 5 CAP INHALER IH SCH (09:32)
[2016-03-21] MEDS: FLUTICASONE/SALMETEROL 14 PUFF DISK.W.DEV IH SCH ×2 (09:32→21:33)
[2016-03-21] MEDS: DULoxetine HCL 30 MG CAPSULE.SA PO SCH (09:32)
[2016-03-21] MEDS: FERROUS SULFATE 325 MG TABLET PO SCH (09:33)
[2016-03-21 09:41] LABS: Hematocrit 26.6 % (37.0-47.0); Hemoglobin 8.7 gm/dL (12.5-16.0); Mean Cell Volume 87.8 fl (78-100); Mean Corpuscular Hemoglobin 28.7 pg (27-31); Mean Corpuscular Hgb Conc 32.7 g/dl (32-36); Mean Platelet Volume 8.3 fl (6.0-9.5); Neutrophil # 8.2 K/mm3 (1.3-6.0); Neutrophil % 76.9 % (42-75.0); Platelet Count 430 K/mm3 (150-450); Red Blood Count 3.03 M/mm3 (4.2-5.4); Red Cell Distribution Width 16.1 % (11.5-14.0); White Blood Count 10.7 K/mm3 (4.0-10.5)
--- NOTE | 2016-03-21 11:15 | PN ---
Subjective - Date and Time Seen Date: 03/21/16 Time: 06:50 Subjective Narrative: The patient's nurse this morning reported to me that the patient's hip wound was pink and warm to the touch, and that there was dark yellow drainage on her dressing. Little pain. No fever. Feels well in general. Hgb was 7.8 this morning, down from before. Objective - Review of Systems Generalized/Overall Review: Reports: No Symptoms Reported EENTM: Reports: No Symptoms Reported Respiratory: Reports: No Symptoms Reported Cardiac: Reports: No Symptoms Reported Abdominal: Reports: No Symptoms Reported Genitourinary Symptoms: Reports: No Symptoms Reported Musculoskeletal Complaints: Reports: Joint Pain, Other - swelling in right lower leg. previous right knee surgery, now this time, hip surgery. Neurological: Reports: No Symptoms Reported Skin: Reports: No Symptoms Reported Endocrine: Reports: No Symptoms Reported Misc: All systems neg except as marked - Vitals Vitals: Last Vital Signs Selected Entries 12/19/15 02/01/16 02/01/16 00:21 18:27 19:38 Temperature 35.8 C L 37.0 C Temperature Tympanic Source Pulse Rate 133 H 122 H Pulse Rhythm Pulse Strength Respiratory 21 H Rate Blood Pressure 121/68 75/44 Blood Pressure Sitting Position O2 Sat by Pulse 93 Oximetry Oxygen Delivery Room Air Method 02/01/16 03/20/16 03/20/16 19:48 14:54 16:33 Temperature 36.6 C Temperature Oral Source Pulse Rate 116 H 109 H 109 H Pulse Rhythm Pulse Strength Respiratory Rate Blood Pressure Blood Pressure Position O2 Sat by Pulse Oximetry Oxygen Delivery Method 03/20/16 03/20/16 03/20/16 18:19 22:50 23:55 Temperature 37 C 37.4 C 37.3 C Temperature Oral Oral Source Pulse Rate 118 H 125 H Pulse Rhythm Regular Pulse Strength Respiratory Rate Blood Pressure Blood Pressure Position O2 Sat by Pulse Oximetry Oxygen Delivery Method 03/21/16 04:58 Temperature 37.6 C H Temperature Oral Source Pulse Rate 116 H Pulse Rhythm Regular Pulse Strength Normal Respiratory 14 Rate Blood Pressure 129/70 Blood Pressure Position O2 Sat by Pulse 93 Oximetry Oxygen Delivery Room Air Method - Abnormal Lab Findings Abnormal Lab Findings: Abnormal Lab Results 03/21/16 03/21/16 03/21/16 Range/Units 05:00 07:15 09:35 WBC 10.8 H 10.7 H (4.0-10.5) K/mm3 RBC 2.74 L 3.03 L (4.2-5.4) M/mm3 Hgb 7.8 L* 8.7 L (12.5-16.0) gm/dL Hct 23.6 L* 26.6 L (37.0-47.0) % RDW 16.1 H 16.1 H (11.5-14.0) % Plt Count 453 H (150-450) K/mm3 Immature Gran % (Auto) 0.80 H (0.001-0.429) % Immature Gran # (Auto) 0.09 H (0.000-0.0310) K/mm3 Neutrophils % 76.9 H (42-75.0) % Lymphocytes % 13.6 L (20-51) % Neutrophils # 8.2 H (1.3-6.0) K/mm3 Crossmatch See Detail - Exam Constitutional: Present: Alert, Oriented x3, Cooperative, Well developed, Well nourished, No distress ENT Exam: Present: normal ENT inspection, hearing grossly normal Neck: Present: normal inspection Respiratory: Present: lungs clear, no respiratory distress Cardiovascular/Chest: Present: regular rate, rhythm, no murmur Abdomen: Present: Normal bowel sounds, soft, nontender, nondistended, no rebound tenderness, no hepatospenomegaly, no masses Extremity: Present: other - right hip wound intact. around wound pink and warm , but only a little more than usual, perhaps. no active wound drainage. dressing shows typical serosanguinous drainage, small amount. Minimal edema right foot. Skin Exam: Present: normal color, warm/dry, no cyanosis Neurologic: Present: alert, oriented x 3 Appearance: Present: appropriate appearance, appropriate insight, neat, no memory impairment Eye contact: Present: cooperative, good eye contact, normal speech Thoughts: Present: normal thought pattern Cauti Physician Documentation - Urinary Catheter Management Urethral (Mcconnell) Date of Insertion: 03/17/16 Time of Insertion: 12:02 Date of Removal: 03/19/16 Time of Removal: 09:22 Assessment/Plan Plan Narrative: One unit of blood IV due to drop of hgb to 7.8 CBC this morning instead of hemogram, to check on wbc differential and to see if wbc count has gone up from the hemogram done earlier this morning. Culture wound and blood. Continue post op protocol. - Problems/Diagnosis (1) Anemia associated with acute blood loss Problem: Acute (2) Hip fracture, right Problem: Acute Qualifiers: Encounter type: initial encounter Fracture type: closed Qualified Code(s) : S72.001A - Fracture of unspecified part of neck of right femur, initial encounter for closed fracture (3) Tachycardia Problem: Acute (4) COPD (chronic obstructive pulmonary disease) Problem: Chronic Qualifiers: COPD type: chronic bronchitis Chronic bronchitis type: unspecified Qualified Code(s): J42 - Unspecified chronic bronchitis (5) Fibromyalgia Problem: Chronic (6) Hypertension Problem: Chronic Qualifiers: Hypertension type: essential hypertension Qualified Code(s): I10 - Essential (primary) hypertension (7) Chronic pain Problem: Chronic Qualifiers: Chronic pain type: chronic pain syndrome Qualified Code(s): G89.4 - Chronic pain syndrome
[2016-03-21] MEDS: LISINOPRIL 10 MG TABLET PO SCH (16:22)
[2016-03-21] MEDS: FAMOTIDINE 20 MG TABLET PO SCH (21:34)
[2016-03-21] MEDS: SENNOSIDES/DOCUSATE SODIUM 1 TAB TABLET PO SCH (21:34)
[2016-03-21] MEDS: traZODone HCL 150 MG TABLET PO SCH (21:34)
[2016-03-21] MEDS: MONTELUKAST SODIUM 10 MG TABLET PO SCH (21:35)
[2016-03-22] MEDS: oxyCODONE HCL 5 MG TABLET PO PRN ×5 (00:15→17:30)
[2016-03-22] MEDS: PANTOPRAZOLE SODIUM 40 MG TABLET.EC PO SCH (06:50)
[2016-03-22] MEDS: PREGABALIN 75 MG CAPSULE PO SCH ×2 (06:51→13:51)
[2016-03-22] MEDS: MULTIVITAMINS 1 CAP CAPSULE PO SCH (09:26)
[2016-03-22] MEDS: FLUTICASONE/SALMETEROL 14 PUFF DISK.W.DEV IH SCH (09:26)
[2016-03-22] MEDS: FERROUS SULFATE 325 MG TABLET PO SCH (09:26)
[2016-03-22] MEDS: DULoxetine HCL 30 MG CAPSULE.SA PO SCH (09:26)
[2016-03-22] MEDS: ENOXAPARIN SODIUM 40 MG/0.4 ML SYRG SC SCH (09:27)
[2016-03-22] MEDS: TIOTROPIUM BROMIDE 5 CAP INHALER IH SCH (09:57)
--- NOTE | 2016-03-22 11:22 | PN ---
Subjective - Date and Time Seen Date: 03/22/16 Subjective Narrative: No events overnight. Small amount of serous drainage that started yesterday. Pain controlled. Making progress with PT. Objective - Vitals Vitals: Last Vital Signs Temp 36.9 C 03/22/16 10:15 Pulse 96 03/22/16 10:15 Resp 20 03/22/16 10:15 BP 129/78 03/22/16 10:15 Pulse Ox 95 03/22/16 10:15 - Abnormal Lab Findings Abnormal Lab Findings: Abnormal Lab Results 03/21/16 Range/Units 07:15 Crossmatch See Detail - Exam Exam Narrative: Gen: A&Ox3, NAD Resp: breathing nonlabored MSK: RLE--> incision healing appropriately without erythema, small amount of serous drainage on dressing coming from skin flap at midpoint of incision, no drainage expressed when wound squeezed, wound appears benign, appropriate amount of postoperative thigh swelling, 5/5 ankle plantarflexion, 4/5 ankle dorsiflexion (consistent with pre-existing foot drop) Cauti Physician Documentation - Urinary Catheter Management Urethral (Mcconnell) Date of Insertion: 03/17/16 Time of Insertion: 12:02 Date of Removal: 03/19/16 Time of Removal: 09:22 Assessment/Plan Plan Narrative: 60 yo F w/ R displaced subcapital femoral neck fx s/p R LUCY, POD #4. - WBAT, anterior hip precautions - wound looks benign, small amt of serous drainage from skin edge not concerning , wound reinforced with dermabond and re-dressed, recommend 7 days of Keflex 500mg BID - PT/OT - DVT ppx: 10 days total of lovenox followed by 325 mg aspirin BID for 6 weeks - continue care per Medicine team, ok to d/c from Ortho standpoint Ortho D/C Instructions: - WBAT, anterior hip precautions, outpatient PT script ordered - change dressing every 2-3 days with 4x4 gauze and tegaderm, keep wound completely dry, sponge baths only - Keflex 500 mg BID for 7 days - DVT ppx: 10 days of lovenox followed by 325 mg ASA BID for 6 weeks - Post-op Ortho follow up 2 weeks from surgery (should already by scheduled)
--- NOTE | 2016-03-22 13:44 | DS ---
(1) Hip fracture, right Diagnosis(s): s/p LUCY. Problem: Acute Qualifiers: Encounter type: initial encounter Fracture type: closed Qualified Code(s) : S72.001A - Fracture of unspecified part of neck of right femur, initial encounter for closed fracture (2) Anemia associated with acute blood loss Diagnosis(s): stable Problem: Acute (3) Tachycardia Problem: Resolved (4) Fibromyalgia Problem: Chronic (5) COPD (chronic obstructive pulmonary disease) Problem: Chronic Qualifiers: COPD type: chronic bronchitis Chronic bronchitis type: unspecified Qualified Code(s): J42 - Unspecified chronic bronchitis (6) Hypertension Problem: Chronic Qualifiers: Hypertension type: essential hypertension Qualified Code(s): I10 - Essential (primary) hypertension Description of Stay: Pita Charles, is a 60-year-old white female, with previous medical history of COPD, hypertension, anxiety and depression, fibromyalgia, who earlier on the morning of 03/17/2016 slipped in her bathroom and fell down. She immediately experienced severe right hip pain and could not stand up and bear weight. She was brought to the emergency room where she was found to have a right femoral neck fracture. She was then admitted for further orthopedic intervention. She denied any chest pain, shortness of breath, palpitations, blanketing of vision, soiling of undergarments before she fell down. Her most recent surgery was in September 2015 where she had left total knee arthroplasty in [facility] . She did not have any cardiac/pulmonary or anesthesia complications. She denies any fever or chills, denies any coughing, she denies any dysuria, frequency, chest pain, shortness of breath or palpitations. She underwent total hip arthroplasty the following day and has been doing PT/OT . She is stable now to be discharged. . Procedures Performed: see notes below List Procedures: Right total hip arthroplasty. Discharge Disposition: Home self care Disposition: Home self-care Condition: Good Discharge Activity: Other - please see Ortho recommendation Discharge Diet: Low salt Residential Therapy: Physicial Therapy Additional Patient Instructions (free text): PT on March at 8:30 AM. Follow with PCP when she follows up with Ortho. Prescriptions (Any new or edited meds): Acetaminophen [Tylenol] 1,000 mg PO Q6H PRN #60 tablet PRN Reason: Mild Pain Enoxaparin Sodium [Lovenox] 40 mg SC Q24H #7 disp.syrin Ferrous Sulfate 325 mg PO DAILY #30 tablet Sennosides/Docusate Sodium [Senokot-S] 2 tab PO HS #30 tablet oxyCODONE HCL [Oxycodone] 5 - 15 mg PO Q3H PRN #120 tablet PRN Reason: Pain Scale 5-6 Complete Home Medications List: Complete Home Medication List: Albuterol Sulfate [Albuterol Sulfate 2.5 MG/0.5ML] 1 inh NEB Q4H PRN 11/06/15 Alendronate Sodium [Fosamax] 70 mg PO Q7D 11/06/15 DULoxetine HCL [Cymbalta] 90 mg PO DAILY 11/06/15 Fluticasone/Salmeterol [Advair 500-50 Diskus] 1 puff INH Q12H 11/06/15 Lisinopril [Zestril] 10 mg PO QPM 11/06/15 Montelukast Sodium [Singulair] 10 mg PO DAILY 11/06/15 Omeprazole [Prilosec] 40 mg PO DAILY 11/06/15 Polyethylene Glycol 3350 [Miralax] 1 cap PO DAILY 11/06/15 Pregabalin [Lyrica] 150 mg PO TID 11/06/15 Tiotropium [place] [Spiriva] 1 inh PO DAILY 11/06/15 Triamterene/Hydrochlorothiazid [Dyazide 37.5/25] 1 cap PO DAILY 11/06/15 traZODone HCL [Desyrel] 150 mg PO HS 11/06/15 Albuterol Sulfate [Proair Respiclick] 90 mcg IH Q4H PRN 02/02/16 Fluticasone Propionate [Flonase] 1 spray NS DAILY PRN 02/02/16 Potassium Chloride [K-Dur] 40 meq PO DAILY 02/02/16 Ranitidine HCl [Zantac] 300 mg PO HS 03/17/16 Acetaminophen [Tylenol] 1,000 mg PO Q6H PRN #60 tablet 03/22/16 Enoxaparin Sodium [Lovenox] 40 mg SC Q24H #7 disp.syrin 03/22/16 Ferrous Sulfate 325 mg PO DAILY #30 tablet 03/22/16 Sennosides/Docusate Sodium [Senokot-S] 2 tab PO HS #30 tablet 03/22/16 oxyCODONE HCL [Oxycodone] 5 - 15 mg PO Q3H PRN #120 tablet 03/22/16 Amb Orders for Discharge: Basic Metabolic Panel Time Frame: 1 Week, Location: Determined By Patient CBC Time Frame: 1 Week, Location: Determined By Patient PT Evaluation and Treatment Facility: [facility], Location: Rehabilitation Services
[2016-03-22 14:37] VITALS: BP 141/68
--- NOTE | 2016-03-30 18:41 | PN ---
Subjective - Date and Time Seen Date: 03/20/16 Time: 07:30 Subjective Narrative: Minimal pain. No nausea. Patient was up yesterday with help. Objective - Review of Systems Generalized/Overall Review: Reports: No Symptoms Reported EENTM: Reports: No Symptoms Reported Respiratory: Reports: No Symptoms Reported Cardiac: Reports: No Symptoms Reported Abdominal: Reports: No Symptoms Reported Genitourinary Symptoms: Reports: No Symptoms Reported Musculoskeletal Complaints: Reports: Joint Pain Neurological: Reports: No Symptoms Reported Skin: Reports: No Symptoms Reported Endocrine: Reports: No Symptoms Reported Misc: All systems neg except as marked - Vitals Vitals: Last Vital Signs Selected Entries 03/20/16 06:56 Temperature 37.5 C Temperature Oral Source Pulse Rate 112 H Respiratory 24 H Rate Blood Pressure 115/66 Blood Pressure Supine Position O2 Sat by Pulse 96 Oximetry Oxygen Delivery Room Air Method - Exam Constitutional: Present: Cooperative, Somnolent ENT Exam: Present: normal ENT inspection Neck: Present: normal inspection Respiratory: Present: lungs clear, no respiratory distress Cardiovascular/Chest: Present: regular rate, rhythm, no murmur Abdomen: Present: Normal bowel sounds, soft, nontender, nondistended, no rebound tenderness, no hepatospenomegaly, no masses Extremity: Present: normal inspection, other - dressing not removed Appearance: Present: appropriate appearance, neat Cauti Physician Documentation - Urinary Catheter Management Urethral (Mcconnell) Date of Insertion: 03/17/16 Time of Insertion: 12:02 Date of Removal: 03/19/16 Time of Removal: 09:22 Assessment/Plan Plan Narrative: Continue with post op protocol - Problems/Diagnosis (1) Anemia associated with acute blood loss Problem: Acute (2) Hip fracture, right Problem: Acute Qualifiers: Encounter type: initial encounter Fracture type: closed Qualified Code(s) : S72.001A - Fracture of unspecified part of neck of right femur, initial encounter for closed fracture (3) Tachycardia Problem: Resolved (4) COPD (chronic obstructive pulmonary disease) Problem: Chronic Qualifiers: COPD type: chronic bronchitis Chronic bronchitis type: unspecified Qualified Code(s): J42 - Unspecified chronic bronchitis (5) Fibromyalgia Problem: Chronic (6) Hypertension Problem: Chronic Qualifiers: Hypertension type: essential hypertension Qualified Code(s): I10 - Essential (primary) hypertension (7) Chronic pain Problem: Chronic Qualifiers: Chronic pain type: chronic pain syndrome Qualified Code(s): G89.4 - Chronic pain syndrome
== END 2016-03-22 17:45 | disposition home or self-care (01) | DRG 470 ==
LOC: ER 10:16 → MS 12:00
PROVIDERS: ADMIT Internal Medicine; ATTEND Internal Medicine
PROC: 0SR90JA Replacement of Right Hip Joint with Synthetic Substitute, Uncemented, Open Approach (ICD-10-PCS; principal; 2016-03-18 08:00)
DX: S72.001A Fracture of unspecified part of neck of right femur, initial encounter for closed fracture (principal); D62 Acute posthemorrhagic anemia; R00.0 Tachycardia, unspecified; W01.0XXA Fall on same level from slipping, tripping and stumbling without subsequent striking against object, initial encounter; Y92.002 Bathroom of unspecified non-institutional (private) residence as the place of occurrence of the external cause; D64.89 Other specified anemias; I10 Essential (primary) hypertension; M79.7 Fibromyalgia; J44.9 Chronic obstructive pulmonary disease, unspecified; Z87.891 Personal history of nicotine dependence
CPT/HCPCS: 27130; 36415; 71010; 73502; 80048; 80053; 81001; 85025; 85027; 85610; 86850; 86900; 87040; 87070; 87081; 87086; 93005; 94640; 96374; 97110; 97116; 97163; 97166; 97530; 97535; 99284; P9016

== ENCOUNTER 2016-06-18 13:57 | Emergency (ER) | payer MEDICAID ==
[2016-06-18 13:57] VITALS: BP 129/78
--- OUTSIDE RECORDS SUMMARY | 2016-06-18 14:35 | XMS REPORT | Continuity of Care Document ---
:1955 Author Organization [facility] ([facility]) Address [address] [place] [address] Phone [phone] Care Team Providers Name Role Phone Concepción Nino Marshall Primary Care Provider [phone] Source Comments This disclosure is being made pursuant to the Care Everywhere program, applicable federal and state laws, and may not contain all informaitonavailable regarding this patient.[facility] ([facility]) Active Allergies and Adverse Reactions Allergen Noted Date Severity Reactions Comments Amlodipine 09/09/2014 OTHER swelling Aspirin 10/08/2015 Unknown Gabapentin 10/07/2015 Nausea & Vomiting Ibuprofen Stomach Pain,Nausea & heartburn Vomiting Losartan 11/28/2012 Angioedema Milnacipran 11/26/2013 Nausea & Vomiting,Pruritus savella Nabumetone Diarrhea Symptoms improved after med stopped Rofecoxib Nausea & Vomiting Also celebrex Current Medications Prescription Sig. Disp. Refills Start End Date Status Date calcium take 1 Tab by Active carbonate-vitamin D mouth 3 times (CALCIUM 500+D) 1250 daily. mg-200 unit per tablet multivitamin per take 1 Tab by Active tablet mouth daily. 3 TENS Units raffi 1 Device daily. 1 Each 0 Active Indications: 4 myofascial spine pain ranitidine 300 mg Take 1 tablet 90 tablet Active tablet (300 mg total) 6 by mouth at bedtime. albuterol 2.5 mg/3 Use 3 mL (2.5 360 mL 2 Active mL inhalation mg total) by 6 solution inhalation 4 times daily. albuterol (VENTOLIN Use 2 Puffs by 18 g 11 Active HFA) 90 inhalation 6 mcg/Actuation every 4 hours inhaler as needed. fluticasone-salmeter Use 1 Puff by 180 Each 3 Active ol (ADVAIR 500-50) inhalation 6 inhaler every 12 hours. lisinopril 10 mg Take 1 tablet 90 tablet 3 Active tablet (10 mg total) 6 by mouth daily. omeprazole 40 mg Take 1 capsule 90 capsule 3 Active enteric coated (40 mg total) 6 capsule by mouth daily. triamterene-hydrochl Take 1 tablet 30 tablet 11 Active orothiazide 37.5-25 by mouth daily. 6 mg per tablet Back Brace misc 1 Units daily. 1 Each 0 Active 6 potassium chloride Take 2 tablets 180 tablet 11 Active 20 mEq tablet (40 mEq total) 6 by mouth daily. cholecalciferol Take 400 Units Active (VITAMIN D3) 400 by mouth daily. unit tablet polyethylene glycol Take 17 g by 850 g 11 Active 3350 (MIRALAX) 17 mouth daily. 6 gram/dose powder naloxone 1 mg/mL Gently screw 4 mL 0 Active injection syringe (2 vial into 6 mL) barrel of syringe. Insert white cone into nostril; give a short, vigorous push on end of vial to spray, 1/2 vial, 1ml, into each nostril. Repeat in 3 minutes if no response. intranasal mucosal Use as 2 Each 0 Active atomization device directed. 6 (MAD NASAL) montelukast 10 mg Take 1 tablet 30 tablet 11 Active tablet (10 mg total) 6 by mouth daily. benzonatate 100 mg Take 1-2 120 capsule 6 Active capsule capsules 7 (100-200 mg total) by mouth 2 times daily as needed. DULoxetine 60 mg XR Take 2 capsules 60 capsule 3 Active capsule (120 mg total) 7 by mouth daily. hydrOXYzine HCl 50 Take 0.5-1 90 tablet 2 Active mg tablet tablets (25-50 7 mg total) by mouth every 4 hours as needed. tiZANidine 4 mg Take 0.5 180 tablet 5 Active tablet tablets (2 mg 7 total) by mouth 4 times daily as needed. Check LFT at baseline and with dose increases. pregabalin (LYRICA) Take 1 capsule 60 capsule 5 Active 200 mg capsule (200 mg total) 7 by mouth 2 times daily. oxyCODONE 5 mg Take 2 tablets 180 tablet 0 Active immediate release (10 mg total) 7 tablet by mouth every 6 hours as needed for Pain. No more than 6 tablets a day. traZODone 150 mg Take 1-2 tab 1 60 tablet 3 Active tablet hour before 7 bedtime. tiotropium (SPIRIVA) Use 1 capsule 90 capsule 11 Active 18 mcg inhalation by inhalation 7 capsule daily. tiotropium (SPIRIVA) Use 1 capsule 90 capsule 3 06/18/19 Discontinued 18 mcg inhalation by inhalation 6 17 capsule daily. traZODone 150 mg Take 1 tab 1 30 tablet 3 06/05/19 Discontinued tablet hour before 7 17 bedtime. oxyCODONE 5 mg Take 2 tablets 180 tablet 0 06/03/19 Discontinued immediate release (10 mg total) 7 17 tablet by mouth every 6 hours as needed for Pain. (no more than 6 tabs per day) Active Problems Problem Noted Date Status post total right knee replacement 10/23/2015 Right knee pain 09/17/2015 PONV (postoperative nausea and vomiting) 09/17/2015 Osteoporosis 07/08/2015 Primary osteoarthritis of right knee 07/08/2015 Low back pain with radiation 06/23/2015 Musculoskeletal pain 06/23/2015 Neuropathic pain 06/23/2015 Persistent depressive disorder 06/06/2015 LLOYD (generalized anxiety disorder) 06/06/2015 Psychophysiological insomnia 06/06/2015 Chronic pain 11/27/2014 Chronic low back pain 11/27/2014 Facet arthropathy, lumbar 11/27/2014 Low back pain syndrome 08/09/2014 Chronic rhinitis 04/10/2014 Lumbar foraminal stenosis 08/28/2013 Overview: S/p hemilaminectomy 04/2013; postop course complicated by persistent right leg pain and right foot drop Chronic sinusitis 08/28/2013 History of seasonal allergies 08/28/2013 Right foot drop 08/28/2013 Overview: Postop complication following lumbar hemilaminectomy Nuclear sclerosis 06/28/2012 Lung nodules 05/10/2012 Overview: Found 06/30. Nodules benign- stable on CT 06/06/12 Shoulder pain 05/10/2012 Risk for falls 05/10/2012 Neck pain 05/04/2012 Myofascial pain 05/04/2012 Tubular adenoma of colon 02/04/2012 Overview: Last colonoscopy 01/01, every 3 y screens. Fibromyalgia muscle pain 07/01/2011 Numbness 05/05/2009 Chronic bronchitis 04/25/2009 Osteoarthritis 07/25/2008 Overview: Bilat knee, Bilat hips, Neck, Bilat hands, R elbow, R shoulder., low back. Recurrent injections in the right shoulder and right trochanteric bursa. 04/03 - hand films - mild to moderate OA. 04/03 - knee films - mild OA. Synvisc 08/31 ineffective. Asthma 07/25/2008 Encounter for long-term (current) use of other medications 10/26/2005 Esophageal reflux 10/22/2004 Overview: EGD nl with biopsy nl 01/01 Essential hypertension, benign 11/26/2003 Pure hypercholesterolemia 05/07/2003 Cervicalgia 01/11/2001 Resolved Problems Problem Noted Date Resolved Date Chronic cough 01/03/2013 11/01/2013 Trochanteric bursitis 12/06/2011 08/28/2013 Unspecified asthma, with exacerbation 05/18/2007 07/25/2008 Foreign body in unspecified site on external eye 07/26/2005 07/25/2008 Abdominal pain, right upper quadrant 03/10/2005 07/25/2008 Other specified general medical examination 04/27/2004 07/25/2008 Disorders of bursae and tendons in shoulder region, 03/15/2003 07/25/2008 unspecified Pain in joint, shoulder region 02/11/2003 07/25/2008 Acromioclavicular (joint) (ligament) sprain 05/04/2000 07/25/2008 Most Recent Encounters Date Type Specialty Providers Description 06/17/2016 Refill General Internal Trung, Dx: Chronic Medicine Concepción Olivares MD obstructive pulmonary disease, unspecified COPD type (Primary Dx) 06/10/2016 Telephone General Internal Trung, Chief Comp: Medicine Concepción Olivares MD Medication Question 06/09/2016 Pharmacy Visit 06/03/2016 [facility] Selena Santos Dx: Osteoporosis Encounter AMD 06/03/2016 Telephone Care Coordination Desirae Rosales RN 06/02/2016 Pharmacy Visit 05/31/2016 Telephone General Internal Trung, Dx: Lumbar Medicine Concepción Olivares MD radiculopathy (Primary Dx) 05/10/2016 Office Visit General Internal [place], Dx: Neuropathic pain Medicine Concepción Olivares MD (Primary Dx) 05/10/2016 Pharmacy Visit 04/26/2016 [facility] Alen Mota, Dx: Primary Encounter osteoarthritis of right knee 04/26/2016 Office Visit Psychiatry Brandyn Rachel Dx: Anxiety MD Gilberto associated with Randolph, depression (Primary MD Jcarlos Dx) 04/26/2016 Refill Psychiatry Lydia Arias Dx: Anxiety (Primary Dx) 04/26/2016 Telephone General Internal Trung, Chief Comp: Other Medicine Concepción Olivares MD 04/14/2016 Office Visit General Internal Default, Other Dx: Lumbar Medicine Billg - Defo radiculopathy Trung, (Primary Dx) Concepción Olivares MD 04/14/2016 Telephone General Internal [facility], Felecia Olivares MD 04/14/2016 Pharmacy Visit 04/05/2016 Office Visit Med GI/Hepatology Vicky, Dx: Biliary disease Sherwin Hodgson MD (Primary Dx) 03/31/2016 Office Visit General Internal [facility], Subj: Appointment Medicine Concepción Olivares MD Canceled 03/31/2016 Refill General Internal Larisa, Dx: Neuropathic pain Medicine Iban (Primary Dx) 03/30/2016 [facility] Tristen Paez, Chief Comp: Patient Encounter Reported Reason For Visit 03/30/2016 [facility] Chief Comp: Patient Encounter MD Marshall Reported Reason For Visit 03/30/2016 [facility] Athena Chief Comp: Patient Encounter MD Marshall Reported Reason For Visit 03/30/2016 Telephone Care Coordination Catarina Bliss, Chief Comp: Follow-up RN 03/29/2016 Office Visit Psychiatry Randolph, Subj: Upcoming Appt MD Jcarlos Reminder 03/26/2016 Refill Psychiatry Lydia Arias Dx: Primary insomnia (Primary Dx) 03/26/2016 Telephone General Internal Trung, Chief Comp: Medicine Concepción Olivares MD Appointment Request Immunizations Name Dates Previously Given Next Due Hepatitis A, unspecified 06/14/2000 Hepatitis B, unspecified 12/07/2000,07/26/2000,06/14/2000 Influenza 11/25/2008 Influenza, PF 11/30/2011,12/08/2010,12/01/2009 Influenza, quadrivalent PF 11/28/2012 Influenza, unspecified 11/04/2014,11/08/2013,12/09/2012,09/2008,12/26/2006,12/27/2005,12/25/19 05,01/11/2003,12/25/2001,01/04/2001,1 ,12/08/1998 Pneumococcal Conjugate, PCV13 (Prevnar 03/03/2016,08/28/2013 13) Pneumococcal Polysaccharide, PPSV23 06/14/2000 (Pneumovax 23) Pneumococcal, unspecified 05/24/2006 Td, adult unspecified 03/22/2000 Tdap 08/04/2010 Zoster, live (Zostavax) 06/06/2012 Social History Tobacco Use Types Packs/Day Years Used Date Former Smoker Cigarettes 2 27 Quit: 06/08/1998 Smokeless Tobacco: Never Used Tobacco Cessation:Counseling Given: Yes Comments: Alcohol Use Drinks/Week oz/Week Comments Yes 0 Glasses of wine 2 Cans of beer 0 Standard drinks or equivalent Last Filed Vital Signs Vital Sign Reading Time Taken Blood Pressure 149/89 05/10/2016 12:09 PM CDT Pulse 98 05/10/2016 12:09 PM CDT Temperature 36.7 C (98.1 F) 05/10/2016 12:09 PM CDT Respiratory Rate 18 05/10/2016 12:09 PM CDT Height 1.6 m (5' 2.99") 05/10/2016 12:10 PM CDT Weight 57.1 kg (125 lb 14.1 oz) 05/10/2016 12:09 PM CDT Body Mass Index 22.3 05/10/2016 12:09 PM CDT Oxygen Saturation 97% 03/03/2016 10:01 AM 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 Plan of Care Patient Goal Type Goal Exercise Exercise 3x per week (30 min per time) Weight Weight below 91 kg (200 lb) Date Type Specialty Providers Description 06/27/2016 Appointment Neurology Freddie Mathews MD Subj: Appointment [address] [facility] Scheduled [place] [phone] (Fax) 06/28/2016 Appointment Anesthesiology 2, Pain Clinic Subj: Appointment Provider Scheduled 07/21/2016 Appointment Orthopaedic Stefan Mccrary Subj: Appointment MD Shahid Rescheduled [address] [place] [address] [phone] (Fax) 08/02/2016 Appointment Psychiatry Jcarlos Dickson, Dx: Primary insomnia (Primary Dx) [address] [place] [address] [phone] (Fax) 08/27/2016 Appointment General Internal Concepción Nino Subj: Appointment Felecia Olivares MD Scheduled [address] [place] [address] [phone] (Fax) 12/07/2016 Appointment General Internal Concepción Nino Subj: Appointment Medicine MD Marshall Scheduled [address] [place] [address] [phone] (Fax) Health Maintenance Due Date Last Done Comments MMR Vaccine 1973 Mammogram 06/22/2013 06/22/2012, Additional history exists 06/06/2012, 08/04/2010 Cervical Cancer Screening 08/04/2013 08/04/2010, Additional history exists 12/26/2006, 10/26/2005 Influenza Vaccine: Seasonal 09/21/2016 11/04/2014, Additional history exists (Season Ended) 2013, 12/09/2012 Lipid Disorder Screening 12/07/2017 12/07/2012, Additional history exists 09/07/2012, 06/30/2011 Td Vaccine 08/04/2020 08/04/2010, 03/22/2000 Colonoscopy 08/28/2025 08/29/2015, Additional history exists 07/13/2006, 06/04/2006 HCV Screening Completed 05/12/2000 Hepatitis B Vaccine Completed 12/07/2000, 07/26/2000, 06/14/2000 Tdap Vaccine Completed 08/04/2010 Pneumococcal Vaccine Completed 03/03/2016, 08/28/2013, 06/14/2000 Results from Last 3 Months DXA SCAN (06/04/2016 9:44 AM) Narrative Selena Santos MD 06/04/20169:44 AM Dual-energy X-ray Absorptiometry, [employer] A, v13.6.0.2 Procedure Date: 06/03/2016 Ordering Physician:Edith Han MD Dept:[facility] Pita Charles is a 60 y.o. female -with osteoporosis and has started actonel on05/2015.Evaluate BMD for response to therapy. On 06/03/2016,dual-energy x-ray absorptiometry was performed on the following location(s) with the following results: Left femoral oukpC-fzbbx-1.6BMD 0.555 grams/cm2 Left total hip T-score-2.4BMD 0.647 grams/cm2 Lumbar spine (L1&L2) T-score-0.9BMD 0.875 grams/cm2 The third and fourth lumbar vertebrae were not included in the analysis due to disparate values in the adjacent vertebral bodies. We were unable to calculate a rate of change for the lumbar spine due to dissimilar methods of analysis. Since 05/29/2015 there has been a significant increase in bone density in the left total hip (+6.5%). Impression:Osteoporosis Sonia High, RTR Denotes significance based on site specific LSC (least significant change) of 0.02 grams/cm2 A T-score represents the number of standard deviations from a young adult mean and is used in menopausal/postmenopausal women and men ? 50 (WHO): ? -1.0 Normal -1.1 to -2.4 Low (Osteopenia) ? -2.5 Osteoporosis Reference Data for T-score: Lumbar Spine- female Hologic Hip- female NHANES III According to guidelines established by the International Society for Clinical Densitometry, a uniform (non-race adjusted) female normative database should be used for women and men of all ethnic groups. RIGHT KNEE AP& LATERAL (04/26/2016 11:50 AM) Impressions Findings / Impression: The right knee prosthesis is stable in alignment without interval hardware complication. No periprosthetic fracture.Negative for capsular distention. There is thin, continuous periosteal reaction along the medial aspect of the distal femur which is likely secondary to stress. 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 No periprosthetic fracture. Negative for capsular distention. There is thin, continuous periosteal reaction along the medial aspect of the distal femur which is likely secondary to stress. EXTERNAL PL FILMS - STORE ONLY (03/30/2016 1:33 PM)EXTERNAL US - STORE ONLY ( 1:33 PM)
== END 2016-06-18 14:20 | disposition left against medical advice (07) ==
LOC: ER 13:57
DX: Z53.21 Procedure and treatment not carried out due to patient leaving prior to being seen by health care provider (principal)

== ENCOUNTER 2016-08-23 12:41 | Emergency (ER) | payer MEDICAID ==
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
[2016-08-23 16:25] VITALS: BP 114/68
== END 2016-08-23 14:25 | disposition home or self-care (01) ==
LOC: ER 12:41
DX: S22.32XA Fracture of one rib, left side, initial encounter for closed fracture (principal); V18.3XXA Person boarding or alighting a pedal cycle injured in noncollision transport accident, initial encounter; Y93.55 Activity, bike riding; Y92.480 Sidewalk as the place of occurrence of the external cause; D64.9 Anemia, unspecified; F41.8 Other specified anxiety disorders; M19.90 Unspecified osteoarthritis, unspecified site; G89.29 Other chronic pain; M79.7 Fibromyalgia; K21.9 Gastro-esophageal reflux disease without esophagitis; I10 Essential (primary) hypertension; J44.9 Chronic obstructive pulmonary disease, unspecified; E78.5 Hyperlipidemia, unspecified

== ENCOUNTER 2017-04-20 10:47 | Observation (INO) | payer MEDICAID ==
[2017-04-20] MEDS ORDERED: ALBUTEROL SULFATE/IPRATROPIUM 3 ML NEBU IH ONE ×2 (11:07→11:16)
[2017-04-20 11:14] LABS: Hematocrit 31.7 % (37.0-47.0); Hemoglobin 10.7 gm/dL (12.5-16.0); Mean Cell Volume 88.5 fl (78-100); Mean Corpuscular Hemoglobin 29.9 pg (27-31); Mean Corpuscular Hgb Conc 33.8 g/dl (32-36); Mean Platelet Volume 8.8 fl (6.0-9.5); Neutrophil # 5.8 K/mm3 (1.3-6.0); Neutrophil % 77.8 % (42-75.0); Platelet Count 209 K/mm3 (150-450); Red Blood Count 3.58 M/mm3 (4.2-5.4); Red Cell Distribution Width 17.1 % (11.5-14.0); White Blood Count 7.4 K/mm3 (4.0-10.5)
--- NOTE | 2017-04-20 11:18 | ERNOTE ---
Dyspnea - General Presenting Symptoms: shortness of breath Time Seen by Provider: 04/20/17 10:47 Source: patient Exam Limitations: clinical condition - Immun/Allergies/Home Medications Immunizations: IMMUNIZATION HX Immunizations Up to Date Yes History of Influenza Vaccine More Information Required Hx Pneumococcal Vaccination More Information Required Allergies/Adverse Reactions: Allergies losartan [Losartan] Allergy (Severe, Verified 04/20/17 15:27) SEVERE EDEMA celecoxib [From Celebrex] Adverse Reaction (Intermediate, Verified 04/20/17 15: 27) "VIOLENT" GI DISTRESS NSAIDS (Non-Steroidal Anti-Inflamma Adverse Reaction (Intermediate, Verified 15:27) "violent" gi distress aspirin Adverse Reaction (Mild, Verified 04/20/17 15:27) Vomiting ibuprofen Adverse Reaction (Mild, Verified 04/20/17 15:27) Vomiting nabumetone [From Relafen] Adverse Reaction (Mild, Verified 04/20/17 15:27) diarrhea/vomiting citalopram hydrobromide [From Celexa] Adverse Reaction (Verified 04/20/17 15:27) "HISTORY OF FAMILY HEART PROBLEMS" Home Medications: HOME MEDICATIONS Alendronate Sodium [Fosamax] 70 mg PO Q7D 11/06/15 [Last Taken 04/20/17 08:00] DULoxetine HCL [Cymbalta] 120 mg PO DAILY 11/06/15 [Last Taken 04/19/17 08:00] Lisinopril [Zestril] 10 mg PO DAILY 11/06/15 [Last Taken 04/20/17 08:00] Montelukast Sodium [Singulair] 10 mg PO DAILY 11/06/15 [Last Taken 04/20/17 08: 00] Omeprazole [Prilosec] 40 mg PO DAILY 11/06/15 [Last Taken 04/19/17 08:00] Polyethylene Glycol 3350 [Miralax] 1 cap PO DAILY PRN 11/06/15 [Last Taken Unknown] Pregabalin [Lyrica] 150 mg PO BID 11/06/15 [Last Taken 04/20/17 08:00] Triamterene/Hydrochlorothiazid [Dyazide 37.5/25] 1 cap PO DAILY 11/06/15 [Last Taken 04/20/17 08:00] traZODone HCL [Desyrel] 300 mg PO HS 11/06/15 [Last Taken 04/19/17 20:00] Albuterol Sulfate [Proair Respiclick] 90 mcg IH Q4H PRN 02/02/16 [Last Taken Unknown] Potassium Chloride [K-Dur] 40 meq PO HS 02/02/16 [Last Taken 04/19/17 20:00] Ranitidine HCl [Zantac] 300 mg PO HS 03/17/16 [Last Taken 04/19/17 20:00] Acetaminophen [Tylenol] 1,000 mg PO Q6H PRN #60 tablet 03/22/16 [Last Taken Unknown] Ferrous Sulfate 325 mg PO DAILY #30 tablet 03/22/16 [Last Taken 04/20/17 08:00] busPIRone HCL [Buspar] 30 mg PO BID 03/04/17 [Last Taken 04/20/17 08:00] HYDROcodone/ACETAMINOPHEN [Hydrocodone-Acetamin 5-325 mg] 1 each PO Q6H PRN 05/08 [Last Taken Unknown] Ipratropium [place] [Atrovent] 0.5 mg IH QID #7 vial.neb 04/01/17 [Last Taken 08:00] Calcium Carbonate/Vitamin D3 [Calcium 500+D Tablet Chew] 2 tab PO DAILY [Last Taken 04/20/17 08:00] traMADol HCL [Tramadol HCl] 50 mg PO Q6H 04/20/17 [Last Taken Unknown] - History of Present Illness Narrative: PAtient is limited in giving her story, answers some questions appropriately, then gives the same answer for the next questions, She states that she was recently admitted for pneumonia, first states that it was in [place] then that it was here. She is coming today for shortness of breath, back pain and cough, points to her right lateral chest. She was recently admitted here for COPD exacerbation, has a history of chronic back pain. Initiating event: Denies: upper resp illness, out of meds Frequency of episodes: Reports: occassional episodes Modifying Factors - (Improves): Reports: albuterol - ? Associated Symptoms-Dyspnea: Reports: chest pain/discomfort. Denies: fever/ chills Prior Treatment: Reports: recently seen Review of Systems - Narrative Narrative: unable to verify details due to patient's condition - Patient's Past Medical History Patient History - Medical: Anemia, Anxiety, Arthritis, Chronic Pain, Depression , Fibromyalgia, GERD, Kidney stone, Migraines, Osteoarthritis, UTI'S Patient History - Cardiac/Respiratory: Asthma, COPD, Hypertension, Hyperlipidemia, Pneumonia, Sleep Apnea Patient History - Cancer: No Hx of Cancer Patient History - Surgical Procedures: Back Surgery, Cholecystectomy, Colonoscopy, D & C, Total Hip Replacement, Total Knee Replacement, T & A, Other Patient History - Other: None LMP (females 10-50): unknown - Family History Brother Family History - Medical: Family History - Cardiac/Respiratory: Coronary Heart Disease, CVA/Stroke Family History - Cancer: No pertinent family hx Father Family History - Medical: No pertinent hx Family History - Cardiac/Respiratory: Coronary Heart Disease, Hypertension Family History - Cancer: No pertinent family hx Mother Family History - Medical: , Arthritis Family History - Cardiac/Respiratory: Coronary Heart Disease, COPD, TIA Family History - Cancer: No pertinent family hx Sister Family History - Medical: Arthritis Family History - Cardiac/Respiratory: Hypertension Family History - Cancer: No pertinent family hx - Social History Living Situations: home Abuse History: No History of abuse Psych History: Hx of Anxiety, Hx of Depression, Current tx/ever been on anti- depressants or anti-anxiety meds Smoking Status: Unknown if ever smoked Alcohol Use: other Drug Use: other - Immunizations Immunizations Up to Date: Yes Hx Pneumococcal Vaccination: More Information Required to Determine History of Influenza Vaccine: More Information Required to Determine Physical Exam - Physical Exam General Appearance: Present: wd/wn, alert, no apparent distress, anxious Head Exam: Present: normal inspection Eye Exam: Normal inspection: bilateral, PERRL: bilateral, EOMI: bilateral Ears, Nose, Throat: Present: normal pharynx Neck: Present: normal inspection Respiratory: Present: chest nontender, decreased breath sounds, expiration ( prolonged), wheezing Cardiovascular/Chest: Present: no murmur, tachycardia Gastrointestinal/Abdominal: Present: normal bowel sounds, nondistended, soft, tenderness - mild RUQ Extremity Exam: Present: normal inspection, no edema. Absent: joint redness, joint swelling Neurological Exam: Present: alert, disoriented to time, disoriented to situation , other - patient answeres one question appropiate than give the same answer to the next questions, is unable to give time ro details of history, can state name and location, knows some of her meds, her PCP, that she stopped smoking 20 years ago, normal words. Absent: disoriented to person, disoriented to place Skin Exam: Present: normal color, warm/dry ED Progress - Results and Orders Patient's Lab Results:: I have reviewed the patient's lab results. - Vital Signs Patient's Vital Signs:: I have reviewed the patient's vital signs. Vital Signs: Vital Signs 04/20/17 04/20/17 10:48 10:53 Temperature 36.8 C 36.8 C Pulse Rate 122 H 119 H Respiratory 18 18 Rate Blood Pressure 164/97 164/97 O2 Sat by Pulse 97 97 Oximetry - EKG EKG: NSR - sinustachycardia, RBBB - incomplete, other - no acute changes except for rate EKG read: Interp. by me - X-Ray X-Ray #1 X-Ray: chest - increased interstitial marking on the right lung (edema vs infiltrate) Interpretation: Reviewed by me - CT/Ultrasound CT/Ultrasound Narrative: CT head: no acute findings U/S liver: dilated common duct (unchanged to prior) - Progress/Reassessment Chief Complaint: Dyspnea Progress Note-Subjective: 04/20/17 11:57 air movement improved after neb treatment, still some wheezing 04/20/17 14:[address] Peres UDS available, positive for benzos, patient doesn't have prescription nor benzos on [employer] patient complaining of headache, allergic to NSAIDs, will try supportive measures, no tylenol as LFTs elevated, as altered mental status will hold of on narcotic medications PSI 90, class III 04/20/17 14:33 discussed with yareli Roach to admit for observation add Cefipime for pseudomonas coverage Departure Clinical Impression: COPD (chronic obstructive pulmonary disease) Qualifiers: COPD type: unspecified COPD Qualified Code(s): J44.9 - Chronic obstructive pulmonary disease, unspecified Chronic pain Qualifiers: Chronic pain type: other chronic pain Qualified Code(s): G89.29 - Other chronic pain Pneumonia Qualifiers: Pneumonia type: due to unspecified organism Laterality: right Lung location: unspecified part of lung Qualified Code(s): J18.9 - Pneumonia, unspecified organism - Departure Disposition: Still a patient Condition: Stable
[2017-04-20 11:30] LABS: Albumin * 2.8 gm/dl (3.4-5.0); Anion Gap 15.1 mmol/L (6.8-13.8); BUN/Creatinine Ratio 17.4 (9.0-21.6); Bilirubin, Total 0.8 mg/dL (0.0-1.1); Calcium * 8.4 mg/dL (7.9-10.9); Carbon Dioxide 24.9 mmol/L (24-32.6); Total Protein 6.5 gm/dL (6.2-8.2)
[2017-04-20 11:45] LABS: CRP 47.2 mg/dL (0.0-0.9)
[2017-04-20 12:02] LABS: Urine Bilirubin 1 mg/dl (NEGATIVE); Urine Blood 50 /ul (NEGATIVE); Urine Ketone Large mg/dL (NEGATIVE); Urine Nitrite Negative (NEGATIVE); Urine Protein 100 mg/dL (NEGATIVE); Urine Urobilinogen Normal (NORMAL); Urine pH 7.5 pH (5.0-7.0)
[2017-04-20 12:05] LABS: Urine Appearance Clear; Urine Bacteria TRACE; Urine Color Yellow; Urine RBC None Seen /hpf (0-5); Urine WBC 0-5 /hpf (0-5)
[2017-04-20 12:25] LABS: BNP * 268 pg/mL (5-205)
[2017-04-20] MEDS ORDERED: NORMAL SALINE 1,000 ML IV PRN (13:41)
[2017-04-20 14:11] LABS: Cocaine Ur Negative (NEGATIVE); Urine Barbiturate Negative (NEGATIVE); Urine PCP Negative (NEGATIVE); Urine THC Negative (NEGATIVE)
[2017-04-20 14:15] LABS: Urine Benzodiazepines Positive (NEGATIVE); Urine Opiates Positive (NEGATIVE)
[2017-04-20] MEDS ORDERED: LEVOFLOXACIN IN DEXTROSE 5 % 750 MG/150 ML BAG IV ONE (14:22)
[2017-04-20] MEDS ORDERED: ACETAMINOPHEN 325 MG TABLET PO PRN (15:00)
[2017-04-20] MEDS ORDERED: WATER IV SCH ×2 (16:00)
[2017-04-20] MEDS ORDERED: DEXTROSE 5% IV SCH ×2 (16:00)
[2017-04-20] MEDS ORDERED: CEFEPIME HCL IV SCH ×2 (16:00)
--- NOTE | 2017-04-20 17:23 | HP ---
Chief Complaint - Chief Complaint Date of Service: 04/20/17 Time of Service: 17:09 Chief Complaint: cough/sob/wheezing History of Present Illness: Pita Charles, is a 61-year-old white female, with previous medical history of COPD, asthma, hypertension, fibromyalgia, chronic pain syndrome with chronic neck pain status post laminectomy, GERD, who was admitted on 04/20/2017 for shortness of breath, wheezing and coughing. The patient says that one week ago she just saw her progress developer in [facility] and clinics and her medications were adjusted. She had been doing well until today when she started having shortness of breath, coughing of yellowish brownish phlegm, and wheezing. Her children then brought her to our emergency room. She was noted to be confused and so a CT scan of her head was done which showed no acute intracranial process. Her ESR ,CRP was elevated and since her AST, AST, alkaline phosphatase and GGT were elevated and ultrasound of her gallbladder was taken. There was no evidence of acute hepatobiliary process as well. His chest x-ray showed interstitial edema with airspace disease cannot rule out infectious process. . Her white blood cell count was within normal limits, however, she did have some mildly elevated neutrophil count. She was admitted for pneumonia. - Patient's Past Medical History Patient History - Medical: Anemia, Anxiety, Arthritis, Chronic Pain, Depression , Fibromyalgia, GERD, Kidney stone, Migraines, Osteoarthritis, UTI'S Patient History - Cardiac/Respiratory: Asthma, COPD, Hypertension, Hyperlipidemia, Pneumonia, Sleep Apnea Patient History - Cancer: No Hx of Cancer Patient History - Surgical Procedures: Back Surgery, Cholecystectomy, Colonoscopy, D & C, Total Hip Replacement, Total Knee Replacement, T & A, Other Patient History - Other: None LMP (females 10-50): unknown - Family History Brother Family History - Medical: Family History - Cardiac/Respiratory: Coronary Heart Disease, CVA/Stroke Family History - Cancer: No pertinent family hx Father Family History - Medical: No pertinent hx Family History - Cardiac/Respiratory: Coronary Heart Disease, Hypertension Family History - Cancer: No pertinent family hx Mother Family History - Medical: , Arthritis Family History - Cardiac/Respiratory: Coronary Heart Disease, COPD, TIA Family History - Cancer: No pertinent family hx Sister Family History - Medical: Arthritis Family History - Cardiac/Respiratory: Hypertension Family History - Cancer: No pertinent family hx - Social History Living Situations: home Abuse History: No History of abuse Psych History: Hx of Anxiety, Hx of Depression, Current tx/ever been on anti- depressants or anti-anxiety meds Smoking Status: Unknown if ever smoked Have you smoked in the past 12 months: No Do you dip or chew tobacco: No Patient requests Smoking Cessation Consult: No Initiate information on Smoking Cessation: No Alcohol Use: other Drug Use: other - Immunizations Immunizations Up to Date: Yes Hx Pneumococcal Vaccination: More Information Required to Determine History of Influenza Vaccine: More Information Required to Determine Review Of Systems (GEN) - Review of Systems Generalized/Overall Review: Present: Weakness, Chills, Fever Respiratory: Present: Cough, Shortness of Breath, Wheezing Cardiac: Present: Chest Pain - on coughing on the right chest Abdominal: Absent: Nausea, Vomiting Genitourinary: Absent: Urgency, Frequency Musculoskeletal: Present: Joint Pain Immunizations: IMMUNIZATION HX Immunizations Up to Date Yes History of Influenza Vaccine More Information Required Hx Pneumococcal Vaccination More Information Required Allergies/Adverse Reactions: Allergies Allergy/AdvReac Type Severity Reaction Status Date / Time losartan [Losartan] Allergy Severe SEVERE Verified 04/20/17 15:27 EDEMA celecoxib [From Celebrex] AdvReac Intermediate "VIOLENT" Verified 04/20/17 15:27 GI DISTRESS NSAIDS (Non-Steroidal AdvReac Intermediate "violent" Verified 04/20/17 15:27 Anti-Inflamma gi distress aspirin AdvReac Mild Vomiting Verified 04/20/17 15:27 ibuprofen AdvReac Mild Vomiting Verified 04/20/17 15:27 nabumetone [From Relafen] AdvReac Mild diarrhea/vo Verified 04/20/17 15:27 miting citalopram hydrobromide AdvReac "HISTORY Verified 04/20/17 15:27 [From Celexa] OF FAMILY HEART PROBLEMS" Home Medications: HOME MEDICATIONS Alendronate Sodium [Fosamax] 70 mg PO Q7D 11/06/15 [Last Taken 04/20/17 08:00] DULoxetine HCL [Cymbalta] 120 mg PO DAILY 11/06/15 [Last Taken 04/19/17 08:00] Lisinopril [Zestril] 10 mg PO DAILY 11/06/15 [Last Taken 04/20/17 08:00] Montelukast Sodium [Singulair] 10 mg PO DAILY 11/06/15 [Last Taken 04/20/17 08: 00] Omeprazole [Prilosec] 40 mg PO DAILY 11/06/15 [Last Taken 04/19/17 08:00] Polyethylene Glycol 3350 [Miralax] 1 cap PO DAILY PRN 11/06/15 [Last Taken Unknown] Pregabalin [Lyrica] 150 mg PO BID 11/06/15 [Last Taken 04/20/17 08:00] Triamterene/Hydrochlorothiazid [Dyazide 37.5/25] 1 cap PO DAILY 11/06/15 [Last Taken 04/20/17 08:00] traZODone HCL [Desyrel] 300 mg PO HS 11/06/15 [Last Taken 04/19/17 20:00] Albuterol Sulfate [Proair Respiclick] 90 mcg IH Q4H PRN 02/02/16 [Last Taken Unknown] Potassium Chloride [K-Dur] 40 meq PO HS 02/02/16 [Last Taken 04/19/17 20:00] Ranitidine HCl [Zantac] 300 mg PO HS 03/17/16 [Last Taken 04/19/17 20:00] Acetaminophen [Tylenol] 1,000 mg PO Q6H PRN #60 tablet 03/22/16 [Last Taken Unknown] Ferrous Sulfate 325 mg PO DAILY #30 tablet 03/22/16 [Last Taken 04/20/17 08:00] busPIRone HCL [Buspar] 30 mg PO BID 03/04/17 [Last Taken 04/20/17 08:00] HYDROcodone/ACETAMINOPHEN [Hydrocodone-Acetamin 5-325 mg] 1 each PO Q6H PRN 05/08 [Last Taken Unknown] Ipratropium [place] [Atrovent] 0.5 mg IH QID #7 vial.neb 04/01/17 [Last Taken 08:00] Calcium Carbonate/Vitamin D3 [Calcium 500+D Tablet Chew] 2 tab PO DAILY [Last Taken 04/20/17 08:00] traMADol HCL [Tramadol HCl] 50 mg PO Q6H 04/20/17 [Last Taken Unknown] Exam - Exam Vital Signs: Vital Signs - Last Taken Temp 37 C 04/20/17 14:54 Pulse 96 02/28/18 14:54 Resp 18 04/20/17 14:54 BP 153/94 04/20/17 14:54 Pulse Ox 96 04/20/17 14:54 Constitutional: Present: Alert, Oriented x3, Cooperative, Mild distress, Other - confused at times and slow to remember but answers appropriately ENT Exam: Present: hearing grossly normal Eye Exam: bilateral eye: normal inspection, PERRL, EOMI Neck: Present: supple Respiratory: Present: decreased breath sounds, wheezing, No rales Cardiovascular/Chest: Present: regular rate, rhythm, no JVD, no murmur Abdomen: Present: Normal bowel sounds, soft, nontender, nondistended Extremity: Present: no pedal edema, no calf tenderness Neurologic: Present: model and dye person II-XII nml as tested, no motor/sensory deficits, oriented x 3 Diagnostic Studies: Laboratory Results WBC 7.4 K/mm3 (4.0-10.5) 04/20/17 11:11 RBC 3.58 M/mm3 (4.2-5.4) L 04/20/17 11:11 Hgb 10.7 gm/dL (12.5-16.0) L 04/20/17 11:11 Hct 31.7 % (37.0-47.0) L 04/20/17 11:11 MCV 88.5 fl (78-100) 04/20/17 11:11 MCH 29.9 pg (27-31) 04/20/17 11:11 MCHC 33.8 g/dl (32-36) 04/20/17 11:11 RDW 17.1 % (11.5-14.0) H 04/20/17 11:11 Plt Count 209 K/mm3 (150-450) 04/20/17 11:11 MPV 8.8 fl (6.0-9.5) 04/20/17 11:11 Immature Gran % (Auto) 1.30 % (0.001-0.429) H 04/20/17 11:11 Immature Gran # (Auto) 0.10 K/mm3 (0.000-0.0310) H 04/20/17 11:11 Neutrophils % 77.8 % (42-75.0) H 04/20/17 11:11 Lymphocytes % 13.9 % (20-51) L 04/20/17 11:11 Monocytes % 6.2 % (0.0-9) 04/20/17 11:11 Eosinophils % 0.7 % (0.0-3.0) 04/20/17 11:11 Basophils % 0.1 % (0.0-1.0) 04/20/17 11:11 Nucleated RBC % 0.0 k/mm3 (0-1) 04/20/17 11:11 Neutrophils # 5.8 K/mm3 (1.3-6.0) 04/20/17 11:11 Lymphocytes # 1.0 k/mm3 (1.5-3.5) L 04/20/17 11:11 Monocytes # 0.5 k/mm3 (0.0-1.0) 04/20/17 11:11 Eosinophils # 0.1 k/mm3 (0.0-0.7) 04/20/17 11:11 Absolute Basophils 0.0 k/mm3 (0.0-0.1) 04/20/17 11:11 ESR 83 mm/hr (0-15) H 04/20/17 11:11 Sodium 136 mmol/L (132-142) 04/20/17 11:11 Plasma Sodium 136 mmol/L (130-142) 04/20/17 11:11 Potassium 3.0 mmol/L (3.4-4.6) L D 04/20/17 11:11 Chloride 99 mmol/L (97-106) 04/20/17 11:11 Carbon Dioxide 24.9 mmol/L (24-32.6) 04/20/17 11:11 Anion Gap 15.1 mmol/L (6.8-13.8) H 04/20/17 11:11 BUN 12 mg/dL (3-23) 04/20/17 11:11 Creatinine 0.69 mg/dL (0.4-1.4) 04/20/17 11:11 Est GFR (Non-Af Amer) 92 mL/min (60-130) D 04/20/17 11:11 BUN/Creatinine Ratio 17.4 (9.0-21.6) 04/20/17 11:11 Random Glucose 84 mg/dL (70-110) 04/20/17 11:11 Lactic Acid, Venous 0.9 mmol/L (0.4-1.9) 04/20/17 11:11 Calcium 8.4 mg/dL (7.9-10.9) 04/20/17 11:11 Calcium Adj for Albumin 9.0 mg/dL (8.4-10.2) 04/20/17 11:11 Total Bilirubin 0.8 mg/dL (0.0-1.1) 04/20/17 11:11 GGT 502 U/L (4-104) H 04/20/17 11:00 AST 62 U/L (0-48) H 04/20/17 11:11 ALT 156 U/L (19-67) H 04/20/17 11:11 Alkaline Phosphatase 200 U/L (50-170) H 04/20/17 11:11 Ammonia Less than 17.0 mcmol/L (11-35) 04/20/17 13:45 C-Reactive Prot, Quant 47.2 mg/dL (0.0-0.9) H 04/20/17 11:11 B-Natriuretic Peptide 268 pg/mL (5-205) H 04/20/17 11:00 Total Protein 6.5 gm/dL (6.2-8.2) 04/20/17 11:11 Albumin 2.8 gm/dl (3.4-5.0) L 04/20/17 11:11 Urine Color Yellow 04/20/17 11:15 Urine Appearance Clear 04/20/17 11:15 Urine pH 7.5 pH (5.0-7.0) 04/20/17 11:15 Ur Specific [place] 1.020 SP.GR. (1.005-1.010) 04/20/17 11:15 Urine Protein 100 mg/dL (NEGATIVE) H 04/20/17 11:15 Urine Glucose (UA) Negative mg/dL (NEGATIVE) 04/20/17 11:15 Urine Ketones Large mg/dL (NEGATIVE) 04/20/17 11:15 Urine Blood 50 /ul (NEGATIVE) H 04/20/17 11:15 Urine Nitrate Negative (NEGATIVE) 04/20/17 11:15 Urine Bilirubin 1 mg/dl (NEGATIVE) H 04/20/17 11:15 Urine Ictotest QNS 04/20/17 11:15 Prot Sulfosalicylic Acd QNS 04/20/17 11:15 Urine Urobilinogen Normal EU/dl (NORMAL) 04/20/17 11:15 Ur Leukocyte Esterase Negative /ul (NEGATIVE) 04/20/17 11:15 Urine RBC None seen /hpf (0-5) 04/20/17 11:15 Urine WBC 0-5 /hpf (0-5) 04/20/17 11:15 Ur Epithelial Cells 5-10 /hpf (0-5) H 04/20/17 11:15 Urine Bacteria Trace (NONE) 04/20/17 11:15 Urine Culture Comments No culture indicated 04/20/17 11:15 Urine Opiates Screen Positive (NEGATIVE) H 04/20/17 13:55 Barbiturate Screen Negative (NEGATIVE) 04/20/17 13:55 Ur Phencyclidine Scrn Negative (NEGATIVE) 04/20/17 13:55 Urine Amphetamine Negative (NEGATIVE) 04/20/17 13:55 U Benzodiazepines Scrn Positive (NEGATIVE) H 04/20/17 13:55 Urine Cocaine Screen Negative (NEGATIVE) 04/20/17 13:55 Urine Marijuana (THC) Negative (NEGATIVE) 04/20/17 13:55 Ethyl Alcohol Less than 3.0 mg/dL (0.0-10.0) 04/20/17 11:00 Assessment/Plan - Assessment/Plan (1) Confusion Assessment: r/o due to drugs- positive opiods and benzos in UDS. r/o due to hypoxia/ hypercarbia- will get an ABG. Problem: Acute (2) Pneumonia Assessment: will continue with Levaquin and change cefepime to meropenem . Problem: Acute Qualifiers: Pneumonia type: due to unspecified organism Laterality: right Lung location: unspecified part of lung Qualified Code(s): J18.9 - Pneumonia, unspecified organism (3) Chronic pain Problem: Chronic Qualifiers: Chronic pain type: other chronic pain Qualified Code(s): G89.29 - Other chronic pain (4) Acute exacerbation of chronic obstructive pulmonary disease (COPD) Assessment: continue with breathing treatments and IV solumedrol with IV antibiotics. Problem: Acute (5) Asthma Problem: Acute Qualifiers: (6) Fibromyalgia Problem: Chronic (7) Hypertension Problem: Chronic Qualifiers: Hypertension type: essential hypertension Qualified Code(s): I10 - Essential (primary) hypertension (8) Chronic pain syndrome Problem: Acute
[2017-04-20] MEDS ORDERED: ACETAMINOPHEN 500 MG TABLET PO PRN (17:30)
[2017-04-20] MEDS ORDERED: BENZONATATE 100 MG CAPSULE PO PRN (17:39)
[2017-04-20] MEDS ORDERED: ALBUTEROL SULFATE 2.5 MG/0.5 ML VIAL.NEB IH PRN (18:00)
[2017-04-20] MEDS ORDERED: POLYETHYLENE GLYCOL 3350 119 GM BTL PO PRN (18:00)
[2017-04-20] MEDS: ALBUTEROL SULFATE/IPRATROPIUM 3 ML NEBU IH SCH ×2 (18:22→22:21)
[2017-04-20] MEDS: traMADol HCL 50 MG TABLET PO SCH (20:17)
[2017-04-20] MEDS: METHYLPREDNISOLONE SOD SUCC 60 MG in WATER FOR INJ.,BACTERIOSTATIC 0 ML IV SCH (20:19)
[2017-04-20] MEDS: MEROPENEM 1 GM in NORMAL SALINE 100 ML IV SCH (20:19)
[2017-04-20] MEDS: PREGABALIN 75 MG CAPSULE PO SCH (20:23)
[2017-04-20] MEDS ORDERED: POTASSIUM CHLORIDE 20 MEQ TABLET.SA PO SCH (21:00)
[2017-04-20] MEDS ORDERED: FAMOTIDINE 20 MG TABLET PO SCH (21:00)
[2017-04-21] MEDS: METHYLPREDNISOLONE SOD SUCC 60 MG in WATER FOR INJ.,BACTERIOSTATIC 0 ML IV SCH ×3 (00:43→10:53)
[2017-04-21] MEDS: traMADol HCL 50 MG TABLET PO SCH ×3 (00:43→10:51)
[2017-04-21] MEDS: ALBUTEROL SULFATE/IPRATROPIUM 3 ML NEBU IH SCH ×4 (02:08→16:40)
[2017-04-21] MEDS: MEROPENEM 1 GM in NORMAL SALINE 100 ML IV SCH (05:14)
[2017-04-21 06:41] LABS: Albumin * 2.7 gm/dl (3.4-5.0); Anion Gap 17.3 mmol/L (6.8-13.8); BUN/Creatinine Ratio 9.7 (9.0-21.6); Bilirubin, Total 0.5 mg/dL (0.0-1.1); Ca. Corrected For Albumin 9.1 mg/dL (8.4-10.2); Calcium * 8.4 mg/dL (7.9-10.9); Carbon Dioxide 21.1 mmol/L (24-32.6); Potassium 3.4 mmol/L (3.4-4.6); Total Protein 6.7 gm/dL (6.2-8.2)
[2017-04-21] MEDS ORDERED: PANTOPRAZOLE SODIUM 40 MG TABLET.EC PO SCH (07:00)
[2017-04-21 07:29] LABS: Chol/HDL Risk Ratio 2.3 mg/dL (3.3-4.4)
--- NOTE | 2017-04-21 07:58 | DS ---
(1) Confusion Problem: Resolved (2) Pneumonia Problem: Acute Qualifiers: Pneumonia type: due to unspecified organism Laterality: right Lung location: unspecified part of lung Qualified Code(s): J18.9 - Pneumonia, unspecified organism (3) Chronic pain Problem: Chronic Qualifiers: Chronic pain type: other chronic pain Qualified Code(s): G89.29 - Other chronic pain (4) Acute exacerbation of chronic obstructive pulmonary disease (COPD) Problem: Acute (5) Asthma Problem: Acute Qualifiers: (6) Fibromyalgia Problem: Chronic (7) Hypertension Problem: Chronic Qualifiers: Hypertension type: essential hypertension Qualified Code(s): I10 - Essential (primary) hypertension (8) Chronic pain syndrome Problem: Acute Description of Stay: Pita Charles, is a 61-year-old white female, with previous medical history of COPD, asthma, hypertension, fibromyalgia, chronic pain syndrome with chronic neck pain status post laminectomy, GERD, who was admitted on 04/20/2017 for shortness of breath, wheezing and coughing. The patient says that one week ago she just saw her programmer analyst health it in [facility] and clinics and her medications were adjusted. She had been doing well until today when she started having shortness of breath, coughing of yellowish brownish phlegm, and wheezing. Her children then brought her to our emergency room. She was noted to be confused and so a CT scan of her head was done which showed no acute intracranial process. Her ESR ,CRP was elevated and since her AST, AST, alkaline phosphatase and GGT were elevated and ultrasound of her gallbladder was taken. There was no evidence of acute hepatobiliary process as well. His chest x-ray showed interstitial edema with airspace disease cannot rule out infectious process. . Her white blood cell count was within normal limits, however, she did have some mildly elevated neutrophil count. She was admitted for pneumonia. She was given levaquin and Meropenem. She is AAO x 3 and not confused like yesterday. she said her daughter gave her the benzodiazepine to help her sleep. Her US did show Fatty liver but her lipid profile were good. Her elevated LFt could be due to her acetominiophen on top of her vicodin. She will be discharged today and to follow up with me in 1 week. She is seeing her programmer analyst health it again on the . She gets her pain medications from pain clinic in [facility]. Procedures Performed: none Discharge Location: Home Disposition: Home self-care Condition: Stable Discharge Activity: Activity as tolerated Discharge Diet: Low salt Referrals: Iban Peres MD [Primary Care Provider] - Additional Patient Instructions (free text): Follow up with me in 1 week. Prescriptions (Any new or edited meds): Acetaminophen [Tylenol] 500 mg PO Q6H PRN #60 tablet PRN Reason: Mild Pain Benzonatate [Tessalon] 200 mg PO TID PRN #21 capsule PRN Reason: Cough Fluticasone/Salmeterol [Advair 500-50 Diskus] 1 puff IH BID #1 inhaler Levofloxacin [Levaquin] 750 mg PO DAILY@1100 #7 tablet predniSONE [Prednisone] 50 mg PO DAILY #7 tablet Tiotropium [place] [Spiriva] 1 cap IH DAILY #30 cap Complete Home Medications List: Complete Home Medication List: Alendronate Sodium [Fosamax] 70 mg PO Q7D 11/06/15 Lisinopril [Zestril] 10 mg PO DAILY 11/06/15 Omeprazole [Prilosec] 40 mg PO DAILY 11/06/15 Polyethylene Glycol 3350 [Miralax] 1 cap PO DAILY PRN 11/06/15 Pregabalin [Lyrica] 150 mg PO BID 11/06/15 Triamterene/Hydrochlorothiazid [Dyazide 37.5/25] 1 cap PO DAILY 11/06/15 Albuterol Sulfate [Proair Respiclick] 90 mcg IH Q4H PRN 02/02/16 Potassium Chloride [K-Dur] 40 meq PO HS 02/02/16 Ranitidine HCl [Zantac] 300 mg PO HS 03/17/16 Ferrous Sulfate 325 mg PO DAILY #30 tablet 03/22/16 busPIRone HCL [Buspar] 30 mg PO BID 03/04/17 Ipratropium [place] [Atrovent] 0.5 mg IH QID #7 vial.neb 04/01/17 Calcium Carbonate/Vitamin D3 [Calcium 500+D Tablet Chew] 2 tab PO DAILY traMADol HCL [Tramadol HCl] 50 mg PO Q6H 04/20/17 Acetaminophen [Tylenol] 500 mg PO Q6H PRN #60 tablet 04/21/17 Benzonatate [Tessalon] 200 mg PO TID PRN #21 capsule 04/21/17 Fluticasone/Salmeterol [Advair 500-50 Diskus] 1 puff IH BID #1 inhaler 04/21/17 Levofloxacin [Levaquin] 750 mg PO DAILY@1100 #7 tablet 04/21/17 Tiotropium [place] [Spiriva] 1 cap IH DAILY #30 cap 04/21/17 predniSONE [Prednisone] 50 mg PO DAILY #7 tablet 04/21/17
[2017-04-21] MEDS: PREGABALIN 75 MG CAPSULE PO SCH (08:31)
[2017-04-21] MEDS ORDERED: TRIAMTERENE/HYDROCHLOROTHIAZID 1 CAP CAPSULE PO SCH (09:00)
[2017-04-21] MEDS ORDERED: MONTELUKAST SODIUM 10 MG TABLET PO SCH (09:00)
[2017-04-21] MEDS ORDERED: LISINOPRIL 10 MG TABLET PO SCH (09:00)
[2017-04-21] MEDS ORDERED: CALCIUM CARBONATE/VITAMIN D3 1 TAB TABLET PO SCH (09:00)
[2017-04-21] MEDS ORDERED: DULoxetine HCL 30 MG CAPSULE.SA PO SCH (09:00)
[2017-04-21] MEDS ORDERED: FERROUS SULFATE 325 MG TABLET PO SCH (09:00)
[2017-04-21] MEDS ORDERED: LEVOFLOXACIN 750 MG TABLET PO SCH (11:00)
[2017-04-21 17:26] VITALS: BP 173/94
[2017-04-27] MEDS ORDERED: ALENDRONATE SODIUM 70 MG TABLET PO SCH (06:00)
== END 2017-04-21 17:00 | disposition home or self-care (01) ==
LOC: ER 10:47 → MS 14:49
PROVIDERS: ADMIT Internal Medicine; ATTEND Internal Medicine
DX: R41.0 Disorientation, unspecified; E78.5 Hyperlipidemia, unspecified; Z68.25 Body mass index [BMI] 25.0-25.9, adult; J18.9 Pneumonia, unspecified organism; J45.909 Unspecified asthma, uncomplicated; G89.29 Other chronic pain; J44.1 Chronic obstructive pulmonary disease with (acute) exacerbation; Z87.891 Personal history of nicotine dependence; I10 Essential (primary) hypertension; M79.7 Fibromyalgia
CPT/HCPCS: 36415; 36600; 70450; 71045; 76705; 80053; 80061; 80307; 81001; 82140; 82803; 82977; 83605; 83880; 85025; 85652; 86140; 87040; 93005; 94640; 96365; 96366; 99284; G0378; G0481